=== PATIENT | male | born 1950 | race American Indian/Alaskan Native ===

== ENCOUNTER 2019-12-05 07:22 | Outpatient (CLI) | payer OTHER ==
--- NOTE | 2019-12-05 08:24 | Cat Scan Report ---
CT CHEST WITHOUT CONTRAST INDICATION / CLINICAL INFORMATION: F/U, ABNORMALITY ON CXR. TECHNIQUE: Axial CT images were obtained through the chest without contrast. All CT scans at this location are p erformed using CT dose reduction for ALARA by means of automated exposure control. COMPARISON: No relevant comparison imaging. I also do not have a report of the abnormal chest x-ray. FINDINGS: HEART: No significant abnormality. THORACIC AORTA: No significant abnormality. MEDIASTINUM and DONYA: No significant abnormality. LUNGS: Diffuse bilateral centrilobular emphysema with greater involvement of the upper lobes. No pulm onary nodule or mass. Wedge-shaped reticular interstitial opacities of the left lower lobe communicat e with the left hilum by peribronchial interstitial thickening. The appearance is most typical of ch ronic scar. PLEURA: No significant pleural effusion. No pneumothorax. ADDITIONAL FINDINGS: None. UPPER ABDOMEN: No significant abnormality. SKELETAL SYSTEM: No significant abnormality. IMPRESSION: 1. Moderate emphysema with greater involvement of the upper lobes. 2. Probable chronic left lower lobe scar. Recommend a follow-up CT chest in 6 months. Signer Name: Gage Lanza MD Signed: 12/05/2019 8:20 AM Workstation Name: [id number]
== END 2019-12-05 07:23 | disposition home or self-care (01) ==
LOC: CT 07:22
DX: J43.2 Centrilobular emphysema (principal)
CPT/HCPCS: 71250

== ENCOUNTER 2020-12-20 15:23 | Inpatient (IN) | payer OTHER ==
[2020-12-20] MEDS ORDERED: FUROSEMIDE 40 MG/4 ML INJ IV ONE (15:40)
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
--- NOTE | 2020-12-20 16:07 | XRay Report ---
CHEST 1 VIEW 12/20/2020 4:03 PM INDICATION / CLINICAL INFORMATION: Dyspnea. COMPARISON: None available. FINDINGS: SUPPORT DEVICES: None. HEART / MEDIASTINUM: No significant abnormality. LUNGS / PLEURA: Mild increased interstitial prominence and opacities in bilateral lungs left pleural effusion Signer Name: Andrey Birmingham MD Signed: 12/20/2020 4:03 PM Workstation Name: [id number]
[2020-12-20] MEDS ORDERED: IPRATROPIUM 0.02% NEBU 2.5 ML IH ONE (16:56)
[2020-12-20] MEDS ORDERED: ALBUTEROL 2.5 MG/3 ML NEBU IH ONE (16:56)
[2020-12-20 17:05] LABS: Blood Urea Nitrogen 22 mg/dL (9-20); Calcium 7.8 mg/dL (8.4-10.2); Hemolysis Index 12
[2020-12-20 17:07] LABS: Alanine Aminotransferase 20 units/L (7-56); Albumin 3.2 g/dL (3.9-5)
[2020-12-20 17:08] LABS: C-Reactive Protein 1.7 mg/dL (0.00-1.30)
[2020-12-20] MEDS ORDERED: LORazepam 2 MG/ML VIAL IV ONE (17:08)
[2020-12-20 17:10] LABS: Basophils % (Auto) 0.4 % (0.0-1.8); Eosinophils # (Auto) 0.1 K/mm3 (0.0-0.4); Eosinophils % (Auto) 0.9 % (0.0-4.3); Hematocrit 50.6 % (35.5-45.6); Hemoglobin 16.4 gm/dl (11.8-15.2); Lymphocytes # (Auto) 3.3 K/mm3 (1.2-5.4); Lymphocytes % (Auto) 41.4 % (13.4-35.0); Mean Corpuscular HGB Conc 33 % (32-34); Mean Corpuscular Volume 96 fl (84-94); Monocytes # (Auto) 0.6 K/mm3 (0.0-0.8); Monocytes % (Auto) 7.8 % (0.0-7.3); Platelet Count 188 K/mm3 (140-440); Red Cell Distribution Width 16.2 % (13.2-15.2)
[2020-12-20 17:30] LABS: BUN/Creatinine Ratio 31; Bilirubin,Direct < 0.2 mg/dL (0-0.2)
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
[2020-12-20] MEDS ORDERED: ACETAMINOPHEN 325 MG TAB PO PRN (19:09)
[2020-12-20] MEDS ORDERED: AZITHROMYCIN/NS 500 MG/250 ML 500 MG/250 ML BAG IV ONE (19:09)
[2020-12-20] MEDS ORDERED: ONDANSETRON 4 MG/2 ML INJ IV PRN (19:09)
[2020-12-20] MEDS ORDERED: ALBUTEROL 2.5 MG/3 ML NEBU IH PRN (19:09)
[2020-12-20] MEDS ORDERED: cefTRIAXone/NS 1 GM/50 ML 1 GM/50 ML BAG IV ONE (19:09)
[2020-12-20] MEDS: FAMOTIDINE 20 MG TAB PO SCH (23:27)
[2020-12-20] MEDS: methylPREDNISolone Sod Succinate 40 MG/1 ML INJ IV SCH (23:28)
[2020-12-20] MEDS: ASCORBIC ACID 500 MG TAB PO SCH (23:28)
[2020-12-20] MEDS: ZINC SULFATE 220 MG CAP PO SCH (23:28)
[2020-12-20] MEDS: HEPARIN 5,000 UNIT/1 ML VIAL SUB-Q SCH (23:29)
[2020-12-21] MEDS: methylPREDNISolone Sod Succinate 40 MG/1 ML INJ IV SCH ×3 (05:33→22:23)
[2020-12-21] MEDS: FUROSEMIDE 20 MG/2 ML INJ IV SCH ×2 (05:33→18:44)
[2020-12-21 06:13] LABS: Alanine Aminotransferase 24 units/L (7-56); Albumin 3.1 g/dL (3.9-5); Blood Urea Nitrogen 19 mg/dL (9-20); Calcium 8.1 mg/dL (8.4-10.2); Hemolysis Index 30
[2020-12-21 06:33] LABS: BUN/Creatinine Ratio 32
[2020-12-21 06:42] LABS: Hemoglobin 15.7 gm/dl (11.8-15.2); Lymphocytes # (Auto) 0.8 K/mm3 (1.2-5.4); Lymphocytes % (Auto) 17.4 % (13.4-35.0); Mean Corpuscular HGB Conc 34 % (32-34); Mean Corpuscular Volume 94 fl (84-94); Monocytes # (Auto) 0.1 K/mm3 (0.0-0.8); Monocytes % (Auto) 1.7 % (0.0-7.3); Platelet Count 197 K/mm3 (140-440); Red Blood Count 5.01 M/mm3 (3.65-5.03); Red Cell Distribution Width 15.9 % (13.2-15.2)
[2020-12-21 06:43] LABS: Basophils % (Auto) 0.1 % (0.0-1.8)
[2020-12-21] MEDS: cefTRIAXone/NS 2 GM/100 ML 2 GM/100 ML BAG IV SCH (09:31)
[2020-12-21] MEDS: FAMOTIDINE 20 MG TAB PO SCH ×2 (09:31→22:24)
[2020-12-21] MEDS: HEPARIN 5,000 UNIT/1 ML VIAL SUB-Q SCH ×2 (09:31→22:24)
[2020-12-21] MEDS: CHOLECALCIFEROL (VIT D3) 1000 UNIT (25 mcg) TAB PO SCH (09:32)
[2020-12-21] MEDS: ZINC SULFATE 220 MG CAP PO SCH ×2 (09:32→22:24)
[2020-12-21] MEDS: ASCORBIC ACID 500 MG TAB PO SCH ×2 (09:32→22:24)
[2020-12-21] MEDS ORDERED: AZITHROMYCIN/NS 500 MG/250 ML 500 MG/250 ML BAG IV SCH (10:00)
--- NOTE | 2020-12-21 14:22 | Consultation ---
History of Present Illness Consult date: 12/21/20 Requesting physician: JACKIE SANDERS Consult reason: congestive heart failure History of present illness: Pt is a 70-year-old AA male, previously unknown to our practice, who presented with confusion and respiratory distress per ER documentation. Pt is a poor historian, and thus majority of HPI obtained from chart and family. Per pt's son, pt was becoming increasingly confused at home over the past 1-2 weeks. Pt's son reports that his father's mobility has been declining, and he has been sleeping more than usual. Pt also apparently had a recent syncopal episode, for which he was evaluated at the [facility] but left AMA at that time. Upon assessment by EMS prior to arrival, pt was noted to be hypoxic with SpO2 in the 60s. He was subsequently started on Venti-Mask. Pt admits to SOB upon assessment this AM. Unable to ascertain whether or not pt has any additional cardiac complaints due to limited cognition. BNP significantly elevated at admission. CXR reveals increased interstitial prominence bilaterally, along with a small left pleural effusion. Chest CTA performed in the setting of elevated D-dimer was negative f or PE; however, reveals dense opacification in the left upper and lower lung. No previous echo or ischemic eval available for review. Past History Past Medical History: COPD, hypertension Past Surgical History: No surgical history Social history: smoking, alcohol abuse Family history: diabetes, hypertension Medications and Allergies Allergies Allergy/AdvReac Type Severity Reaction Status Date / Time No Known Allergies Allergy Unverified 12/05/19 07:22 Active Meds: Active Medications Acetaminophen (Acetaminophen 325 Mg Tab) 650 mg PO Q4H PRN PRN Reason: Pain MILD(1-3)/Fever >100.5/GEORGE Albuterol (Albuterol 2.5 Mg/3 Ml Nebu) 2.5 mg IH Q4HRT PRN PRN Reason: Shortness Of Breath Ascorbic Acid (Ascorbic Acid 500 Mg Tab) 500 mg PO BID [facility] Last Admin: 12/21/20 09:32 Dose: 500 mg Documented by: Cholecalciferol (Cholecalciferol (Vit D3) 1000 Unit (25 Mcg) Tab) 1,000 unit PO QDAY [facility] Last Admin: 12/21/20 09:32 Dose: 1,000 unit Documented by: Famotidine (Famotidine 20 Mg Tab) 20 mg PO BID [facility] Last Admin: 12/21/20 09:31 Dose: 20 mg Documented by: Furosemide (Furosemide 20 Mg/2 Ml Inj) 20 mg IV BID@0600,1800 [facility] Last Admin: 12/21/20 05:33 Dose: 20 mg Documented by: Heparin Sodium (Porcine) (Heparin 5,000 Unit/1 Ml Vial) 5,000 unit SUB-Q Q12HR [facility] Last Admin: 12/21/20 09:31 Dose: 5,000 unit Documented by: Ceftriaxone Sodium (Rocephin/Ns 2 Gm/100 Ml) 2 gm in 100 mls @ 200 mls/hr IV Q24HR [facility]; Protocol Last Infusion: 12/21/20 10:02 Dose: Infused Documented by: Azithromycin (Zithromax/Ns) 500 mg in 250 mls @ 250 mls/hr IV Q24HR [facility]; Protocol Last Admin: 12/21/20 11:07 Dose: 250 mls/hr Documented by: Methylprednisolone Sodium Succinate (Methylprednisolone Sod Succinate 40 Mg/1 Ml Inj) 40 mg IV Q8HR [facility] Last Admin: 12/21/20 13:55 Dose: 40 mg Documented by: Ondansetron HCl (Ondansetron 4 Mg/2 Ml Inj) 4 mg IV Q8H PRN PRN Reason: Nausea And Vomiting Sodium Chloride (Sodium Chloride 0.9% 10 Ml Flush Syringe) 10 ml IV BID [facility] Last Admin: 12/21/20 09:30 Dose: 10 ml Documented by: Sodium Chloride (Sodium Chloride 0.9% 10 Ml Flush Syringe) 10 ml IV PRN PRN PRN Reason: LINE FLUSH Zinc Sulfate (Zinc Sulfate 220 Mg Cap) 220 mg PO BID [facility] Last Admin: 12/21/20 09:32 Dose: 220 mg Documented by: Review of Systems ROS unobtainable: due to mental status Cardiovascular: shortness of breath Respiratory: shortness of breath Physical Examination Last Vital Signs Temp 97.8 F 12/20/20 20:05 Pulse 84 12/21/20 13:30 Resp 20 12/21/20 13:30 BP 109/65 12/21/20 13:30 Pulse Ox 98 12/21/20 13:30 General appearance: no acute distress HEENT: Positive: EOMI, Normocephaly, Mucus Membranes Moist Neck: Positive: neck supple, trachea midline. Negative: JVD/HJR Cardiac: Positive: Reg Rate and Rhythm, S1/S2. Negative: Audible Murmur Lungs: Positive: Decreased Breath Sounds (bilaterally) Neuro: Positive: Other (confused, unknown baseline cognitive fxn) Abdomen: Positive: Soft. Negative: Tender Skin: Negative: Rash Musculoskeletal: No Pain Extremities: Present: upper extr. pulses, lower extr. pulses, edema (BLE) Results 12/21/20 05:05 12/21/20 05:05 Cardiac Enzymes 12/20/20 12/20/20 12/21/20 Range/Units 15:53 15:53 05:05 AST 62 H 81 H (5-40) units/L Lactate Dehydrogenase 346 H (91-180) units/L CBC 12/20/20 12/21/20 Range/Units 15:53 05:05 WBC 8.0 4.7 (4.5-11.0) K/mm3 RBC 5.30 H 5.01 (3.65-5.03) M/mm3 Hgb 16.4 H 15.7 H (11.8-15.2) gm/dl Hct 50.6 H 47.0 H (35.5-45.6) % Plt Count 188 197 (140-440) K/mm3 Lymph # (Auto) 3.3 0.8 L (1.2-5.4) K/mm3 [place] # (Auto) 0.6 0.1 (0.0-0.8) K/mm3 Eos # (Auto) 0.1 0.0 (0.0-0.4) K/mm3 Baso # (Auto) 0.0 0.0 (0.0-0.1) K/mm3 Comprehensive Metabolic Panel 12/20/20 12/20/20 12/20/20 Range/Units 15:53 15:53 15:53 Sodium 140 (137-145) mmol/L Potassium 3.5 L (3.6-5.0) mmol/L Chloride 99.2 (98-107) mmol/L Carbon Dioxide 34 H (22-30) mmol/L BUN 22 H (9-20) mg/dL Creatinine 0.7 L (0.8-1.3) mg/dL Glucose 115 H 114 H (75-100) mg/dL Calcium 7.8 L (8.4-10.2) mg/dL Direct Bilirubin < 0.2 (0-0.2) mg/dL Indirect Bilirubin 0.4 mg/dL AST 62 H (5-40) units/L ALT 20 (7-56) units/L Alkaline Phosphatase 84 (35-129) units/L Total Protein 5.5 L (6.3-8.2) g/dL Albumin 3.2 L (3.9-5) g/dL 12/21/20 Range/Units 05:05 Sodium 143 (137-145) mmol/L Potassium 4.4 D (3.6-5.0) mmol/L Chloride 102.4 (98-107) mmol/L Carbon Dioxide 33 H (22-30) mmol/L BUN 19 (9-20) mg/dL Creatinine 0.6 L (0.8-1.3) mg/dL Glucose 117 H (75-100) mg/dL Calcium 8.1 L (8.4-10.2) mg/dL Direct Bilirubin (0-0.2) mg/dL Indirect Bilirubin mg/dL AST 81 H (5-40) units/L ALT 24 (7-56) units/L Alkaline Phosphatase 92 (35-129) units/L Total Protein 5.4 L (6.3-8.2) g/dL Albumin 3.1 L (3.9-5) g/dL - Imaging and Cardiology Echo: pending EKG: report reviewed, image reviewed - EKG Interpretation EKG: no acute changes EKG interpretations - EKG Sinus rhythms and dysrhythmias: sinus rhythm AV and intraventricular conduction: left posterior fascicular QRS axis and voltage: right axis deviation Assessment and Plan Await COVID-19 testing. Mgmt of PNA per Primary. Echo pending. Agree with gentle IV diuresis for now. Further recommendations to follow per hospital course. Pt seen in conjunction with Dr. Garcia, who agrees with the assessment and plan of care. - Patient Problems (1) Acute encephalopathy Current Visit: Yes Status: Acute (2) Acute respiratory failure with hypoxia Current Visit: Yes Status: Acute (3) Pneumonia Current Visit: Yes Status: Acute (4) Suspected COVID-19 virus infection Current Visit: Yes Status: Acute (5) Elevated d-dimer Current Visit: Yes Status: Acute Plan to address problem: Chest CTA neg for PE (6) CHF (congestive heart failure) Current Visit: Yes Status: Suspected Qualifiers: Heart failure type: unspecified Heart failure chronicity: acute on chronic Qualified Code(s): I50.9 - Heart failure, unspecified (7) COPD (chronic obstructive pulmonary disease) Current Visit: Yes Status: Chronic (8) Hypertension Current Visit: No Status: Chronic Qualifiers: Hypertension type: essential hypertension Qualified Code(s): I10 - Essential (primary) hypertension (9) Cerebral atherosclerosis Current Visit: Yes Status: Chronic (10) Vascular dementia Current Visit: Yes Status: Chronic Qualifiers: Dementia behavioral disturbance: with behavioral disturbance Qualified Code(s): F01.51 - Vascular dementia with behavioral disturbance (11) Tobacco abuse Current Visit: Yes Status: Chronic (12) ETOH abuse Current Visit: Yes Status: Chronic
--- NOTE | 2020-12-21 23:46 | Progress Note ---
Assessment and Plan Assessment and Plan - Patient Problems (1) Acute respiratory failure with hypoxia Current Visit: Yes Status: Acute Plan to address problem: Improving (2) Pneumonia Current Visit: Yes Status: Acute Plan to address problem: Continue IV antibiotics (3) Suspected COVID-19 virus infection Current Visit: Yes Status: Acute Plan to address problem: Pending (4) CHF (congestive heart failure) Current Visit: Yes Status: Acute Qualifiers: Heart failure type: systolic Heart failure chronicity: acute Qualified Code(s): I50.21 - Acute systolic (congestive) heart failure Plan to address problem: Strict I/O, monitor urine output every shift, daily weight, afterload reduction, blood pressure control, continue medical management, diuresis, (5) Hypertension Current Visit: Yes Status: Acute Qualifiers: Hypertension type: essential hypertension Qualified Code(s): I10 - Essential (primary) hypertension Plan to address problem: Monitor blood pressure every shift, continue medical management (6) Vascular dementia Current Visit: Yes Status: Acute Qualifiers: Dementia behavioral disturbance: with behavioral disturbance Qualified Code(s): F01.51 - Vascular dementia with behavioral disturbance Plan to address problem: Verbal prompting, verbal redirection, benzodiazepine therapy as clinically indicated, supportive care (7) Cerebral atherosclerosis Current Visit: Yes Status: Acute Plan to address problem: Risk factor reduction, supportive care, antiplatelet therapy as clinically indicated. (8) DVT prophylaxis Current Visit: Yes Status: Acute Plan to address problem: SCD to bilateral lower extremities while in bed, prophylactic anticoagulation (9) Advance care planning Current Visit: Yes Status: Acute Plan to address problem: Disease education conducted, care plan discussed, diagnoses discussed, prognosis discussed, patient's daughter knowledges understanding and agreement with care plan, +30 minutes. Patient is full code. Subjective Date of service: 12/21/20 Principal diagnosis: Acute respiratory failure with hypoxia Interval history: 70 YO Male with HTN, COPD, Vascular Dementia, Cerebral Atherosclerosis presents to ED for evaluation. Patient is confused with diminished cognition at the time my evaluation and is unable to provide history. Patient history provided by EMS staff, ED staff, as well as patient's son who was available by telephone to discuss patient history. As per son the patient was found to have increased confusion and shortness of breath. EMS was notified and upon arrival the patient was found to be in distress with a pulse oximetry in the 60s on room air. The patient was treated with submental oxygen with mild improvement in symptoms and subsequently transported to [facility] for further care and evaluation of the aforementioned symptoms. Patient seen and evaluated in the emergency department. All lab and imaging studies reviewed. Patient was found to have a pulse oximetry of 72% on room air which is consistent with acute hypoxemic respiratory failure. The patient was treated with nonrebreather mask with mild improvement in symptoms. Chest x-ray revealed bilateral pneumonia. Patient also found to have clinical symptoms consistent with CHF decompensation. Patient admitted to medical floor and initiated on CHF protocol as well as pneumonia protocol and coronavirus protocol. No further history is obtainable. No reports of fever, chills, chest pain, palpitation, trauma, skin rash, recent ill contacts, or known exposure to COVID-19. No prior admission for review. No medication listed at time of admission for reconciliation. Advanced care planning conducted in ED. Patient admitted to [facility] due to increased risk of multisymptom decompensation. Patient is confused with diminished cognition at the time of my evaluation but has a positive gag reflex and is able to protect his airway without difficulty 12/21/2020 Still short of breath Intermittently on high flow oxygen and BiPAP Continue antibiotics and steroids and DuoNebs Objective - Constitutional Vitals: Vital Signs - 12hr 12/21/20 12/21/20 12/21/20 12:00 12:15 12:30 Temperature Pulse Rate 85 85 90 Respiratory 18 21 21 Rate Blood Pressure 121/69 117/70 111/65 O2 Sat by Pulse 100 100 97 Oximetry 12/21/20 12/21/20 12/21/20 12:45 13:00 13:16 Temperature Pulse Rate 93 H 85 84 Respiratory 24 21 20 Rate Blood Pressure 110/47 107/66 105/64 O2 Sat by Pulse 95 98 98 Oximetry 12/21/20 12/21/20 12/21/20 13:30 13:46 14:00 Temperature Pulse Rate 84 92 H 87 Respiratory 20 18 18 Rate Blood Pressure 109/65 101/59 107/65 O2 Sat by Pulse 98 97 98 Oximetry 12/21/20 12/21/20 12/21/20 14:15 14:30 14:45 Temperature Pulse Rate 85 84 86 Respiratory 20 18 22 Rate Blood Pressure 112/67 105/65 109/70 O2 Sat by Pulse 96 96 96 Oximetry 12/21/20 12/21/2012/21/21 15:00 15:15 15:30 Temperature Pulse Rate 82 81 81 Respiratory 24 17 19 Rate Blood Pressure 112/64 101/62 106/65 O2 Sat by Pulse 95 96 96 Oximetry 12/21/20 12/21/20 12/21/20 15:46 15:50 16:00 Temperature Pulse Rate 81 82 Respiratory 17 22 Rate Blood Pressure 114/66 114/66 O2 Sat by Pulse 96 96 93 Oximetry 12/21/20 12/21/20 12/21/20 17:43 18:33 19:18 Temperature Pulse Rate 84 Respiratory Rate Blood Pressure O2 Sat by Pulse 96 98 Oximetry 12/21/20 20:59 Temperature 98.2 F Pulse Rate Respiratory Rate Blood Pressure O2 Sat by Pulse Oximetry General appearance: Present: mild distress, well-nourished - EENT Eyes: PERRL, EOM intact ENT: hearing intact, clear oral mucosa Ears: bilateral: normal - Neck Neck: supple, normal ROM - Respiratory Respiratory effort: normal Respiratory: bilateral: CTA, rhonchi, wheezing - Breasts Breasts: normal - Cardiovascular Heart rate: 78 Rhythm: regular Heart Sounds: Present: S1 & S2. Absent: gallop, rub Extremities: pulses intact, No edema, normal color, Full ROM - Gastrointestinal General gastrointestinal: Present: soft, non-tender, non-distended, normal bowel sounds - Genitourinary Male genitourinary: normal - Integumentary Integumentary: clear, warm, dry - Musculoskeletal Musculoskeletal: 1, strength equal bilaterally - Neurologic Neurologic: moves all extremities - Psychiatric Psychiatric: memory intact, appropriate mood/affect, intact judgment & insight - Labs CBC & Chem 7: 12/21/20 05:05 12/21/20 05:05 Labs: Abnormal lab results 12/21/20 12/21/20 Range/Units 05:05 05:05 Hgb 15.7 H (11.8-15.2) gm/dl Hct 47.0 H (35.5-45.6) % RDW 15.9 H (13.2-15.2) % Lymph # (Auto) 0.8 L (1.2-5.4) K/mm3 Seg Neutrophils % 80.8 H (40.0-70.0) % Carbon Dioxide 33 H (22-30) mmol/L Creatinine 0.6 L (0.8-1.3) mg/dL Glucose 117 H (75-100) mg/dL Calcium 8.1 L (8.4-10.2) mg/dL AST 81 H (5-40) units/L Total Protein 5.4 L (6.3-8.2) g/dL Albumin 3.1 L (3.9-5) g/dL HEART Score - HEART Score Troponin: Troponin T < 0.010 ng/mL (0.00-0.029) 12/20/20 15:53
[2020-12-22] MEDS: FUROSEMIDE 20 MG/2 ML INJ IV SCH ×2 (06:20→17:10)
[2020-12-22] MEDS: methylPREDNISolone Sod Succinate 40 MG/1 ML INJ IV SCH ×3 (06:20→21:54)
[2020-12-22] MEDS: cefTRIAXone/NS 2 GM/100 ML 2 GM/100 ML BAG IV SCH (09:35)
[2020-12-22] MEDS: CHOLECALCIFEROL (VIT D3) 1000 UNIT (25 mcg) TAB PO SCH (09:35)
[2020-12-22] MEDS: AZITHROMYCIN 250 MG TAB PO SCH (09:35)
[2020-12-22] MEDS: FAMOTIDINE 20 MG TAB PO SCH ×2 (09:35→21:54)
[2020-12-22] MEDS: ASCORBIC ACID 500 MG TAB PO SCH ×2 (09:36→21:54)
[2020-12-22] MEDS: HEPARIN 5,000 UNIT/1 ML VIAL SUB-Q SCH ×2 (09:36→21:55)
[2020-12-22] MEDS: ZINC SULFATE 220 MG CAP PO SCH ×2 (09:36→21:54)
--- NOTE | 2020-12-22 16:00 | Progress Note ---
Assessment and Plan Telemetry reviewed sinus rhythm 75. Several episodes of PVC triplets overnight Await COVID-19 testing. Mgmt of PNA per Primary. Echo pending. Agree with gentle IV diuresis for now. Further recommendations to follow per hospital course. Pt seen in conjunction with Dr Ruano who agrees with the assessment and plan of care. - Patient Problems (1) Acute encephalopathy Current Visit: Yes Status: Acute (2) Acute respiratory failure with hypoxia Current Visit: Yes Status: Acute (3) Pneumonia Current Visit: Yes Status: Acute (4) Suspected COVID-19 virus infection Current Visit: Yes Status: Acute (5) Elevated d-dimer Current Visit: Yes Status: Acute Plan to address problem: Chest CTA neg for PE (6) CHF (congestive heart failure) Current Visit: Yes Status: Suspected Qualifiers: Heart failure type: unspecified Heart failure chronicity: acute on chronic Qualified Code(s): I50.9 - Heart failure, unspecified (7) COPD (chronic obstructive pulmonary disease) Current Visit: Yes Status: Chronic (8) Hypertension Current Visit: No Status: Chronic Qualifiers: Hypertension type: essential hypertension Qualified Code(s): I10 - Essential (primary) hypertension (9) Cerebral atherosclerosis Current Visit: Yes Status: Chronic (10) Vascular dementia Current Visit: Yes Status: Chronic Qualifiers: Dementia behavioral disturbance: with behavioral disturbance Qualified Code(s): F01.51 - Vascular dementia with behavioral disturbance (11) Tobacco abuse Current Visit: Yes Status: Chronic (12) ETOH abuse Current Visit: Yes Status: Chronic Subjective Date of service: 12/22/20 Principal diagnosis: Resp Distress Interval history: Patient resting comfortably in bed. No chest pain or shortness of breath overnight. Patient states he is ready to discharge. Significant improvement. Difficult to communicate due to hard of hearing and no functional hearing aids present. Telemetry reviewed sinus rhythm 75. Several episodes of triplet PVCs noted ov ernight Objective Last Vital Signs Temp 97.2 F L 12/22/20 12:00 Pulse 80 12/22/20 15:00 Resp 20 12/22/20 15:00 BP 117/72 12/22/20 15:00 Pulse Ox 98 12/22/20 15:00 - Physical Examination HEENT: Positive: EOMI, Normocephaly, Mucus Membranes Moist Neck: Positive: neck supple, trachea midline. Negative: JVD/HJR Cardiac: Positive: Reg Rate and Rhythm, S1/S2 Lungs: Positive: clear to auscultation, Normal Breath Sounds Neuro: Positive: Other (confused, unknown baseline cognitive fxn) Abdomen: Positive: Soft. Negative: Tender Skin: Negative: Rash Musculoskeletal: No Pain Extremities: Present: upper extr. pulses, lower extr. pulses, edema (BLE) - Imaging and Cardiology EKG: report reviewed, image reviewed Echo: pending - Telemetry EKG Rhythm: Sinus Rhythm - EKG Sinus rhythms and dysrhythmias: sinus rhythm AV and intraventricular conduction: left posterior fascicular QRS axis and voltage: right axis deviation
[2020-12-23] MEDS: FUROSEMIDE 20 MG/2 ML INJ IV SCH ×2 (05:35→18:39)
[2020-12-23] MEDS: methylPREDNISolone Sod Succinate 40 MG/1 ML INJ IV SCH ×3 (05:35→22:09)
--- NOTE | 2020-12-23 06:21 | Progress Note ---
Assessment and Plan Assessment and plan: Assessment and Plan - Patient Problems (1) Acute respiratory failure with hypoxia Current Visit: Yes Status: Acute Plan to address problem: Improving Patient has home oxygen and concentrator Possible discharge tomorrow (2) Pneumonia Current Visit: Yes Status: Acute Plan to address problem: Continue IV antibiotics Possible discharge tomorrow on oral antibiotics (3) Suspected COVID-19 virus infection Current Visit: Yes Status: Acute Plan to address problem: Coronavirus PCR negative (4) CHF (congestive heart failure) Current Visit: Yes Status: Acute Qualifiers: Heart failure type: systolic Heart failure chronicity: acute Qualified Code(s): I50.21 - Acute systolic (congestive) heart failure Plan to address problem: Echo report still pending (5) Hypertension Current Visit: Yes Status: Acute Qualifiers: Hypertension type: essential hypertension Qualified Code(s): I10 - Essential (primary) hypertension Plan to address problem: Blood pressure under control (6) Vascular dementia Current Visit: Yes Status: Acute Qualifiers: Dementia behavioral disturbance: with behavioral disturbance Qualified Code(s): F01.51 - Vascular dementia with behavioral disturbance Plan to address problem: Verbal prompting, verbal redirection, benzodiazepine therapy as clinically indicated, supportive care (7) Cerebral atherosclerosis Current Visit: Yes Status: Acute Plan to address problem: Risk factor reduction, supportive care, antiplatelet therapy as clinically indicated. (8) DVT prophylaxis Current Visit: Yes Status: Acute Plan to address problem: SCD to bilateral lower extremities while in bed, prophylactic anticoagulation (9) Advance care planning Current Visit: Yes Status: Acute Plan to address problem: Disease education conducted, care plan discussed, diagnoses discussed, prognosis discussed, patient's daughter knowledges understanding and agreement with care plan, +30 minutes. Patient is full code. Discharge planning issues Patient on 4 L nasal cannula oxygen Patient has oxygen at home and concentrator at home If stable patient may be discharged tomorrow Coronavirus PCR negative History Interval history: 70 YO Male with HTN, COPD, Vascular Dementia, Cerebral Atherosclerosis presents to ED for evaluation. Patient is confused with diminished cognition at the time my evaluation and is unable to provide history. Patient history provided by EMS staff, ED staff, as well as patient's son who was available by telephone to discuss patient history. As per son the patient was found to have increased confusion and shortness of breath. EMS was notified and upon arrival the patient was found to be in distress with a pulse oximetry in the 60s on room air. The patient was treated with submental oxygen with mild improvement in symptoms and subsequently transported to [facility] for further care and evaluation of the aforementioned symptoms. Patient seen and evaluated in the emergency department. All lab and imaging studies reviewed. Patient was found to have a pulse oximetry of 72% on room air which is consistent with acute hypoxemic respiratory failure. The patient was treated with nonrebreather mask with mild improvement in symptoms. Chest x-ray revealed bilateral pneumonia. Patient also found to have clinical symptoms consistent with CHF decompensation. Patient admitted to medical floor and initiated on CHF protocol as well as pneum onia protocol and coronavirus protocol. No further history is obtainable. No reports of fever, chills, chest pain, palpitation, trauma, skin rash, recent ill contacts, or known exposure to COVID-19. No prior admission for review. No medication listed at time of admission for reconciliation. Advanced care planning conducted in ED. Patient admitted to [facility] due to increased risk of multisymptom decompensation. Patient is confused with diminished cognition at the time of my evaluation but has a positive gag reflex and is able to protect his airway without difficulty 12/21/2020 Still short of breath Intermittently on high flow oxygen and BiPAP Continue antibiotics and steroids and DuoNebs 12/22/2022 Shortness of breath is better On 4 L nasal cannula oxygen Patient to be transferred from [facility] to regular floor Covid negative Hospitalist Physical - Constitutional Vitals: Temp Pulse Resp BP Pulse Ox 98.0 F 77 18 108/71 97 12/23/20 03:57 12/22/20 21:45 12/23/20 03:57 12/23/20 03:56 12/22/20 21:45 General appearance: Present: mild distress, well-nourished - Respiratory Respiratory: bilateral: rales, rhonchi - Cardiovascular Heart rate: 78 Rhythm: regular - Extremities Extremities: no ischemia - Psychiatric Psychiatric: appropriate mood/affect, cooperative - Neurologic Neurologic: CNII-XII intact, gait normal - Allied Health Allied health notes reviewed: nursing, case management HEART Score - HEART Score Troponin: Troponin T < 0.010 ng/mL (0.00-0.029) 12/20/20 15:53 Results - Labs CBC & Chem 7: 12/21/20 05:05 12/21/20 05:05 Labs: Laboratory Last Values WBC 4.7 K/mm3 (4.5-11.0) 12/21/20 05:05 RBC 5.01 M/mm3 (3.65-5.03) 12/21/20 05:05 Hgb 15.7 gm/dl (11.8-15.2) H 12/21/20 05:05 Hct 47.0 % (35.5-45.6) H 12/21/20 05:05 MCV 94 fl (84-94) 12/21/20 05:05 MCH 31 pg (28-32) 12/21/20 05:05 MCHC 34 % (32-34) 12/21/20 05:05 RDW 15.9 % (13.2-15.2) H 12/21/20 05:05 Plt Count 197 K/mm3 (140-440) 12/21/20 05:05 Lymph % (Auto) 17.4 % (13.4-35.0) 12/21/20 05:05 [place] % (Auto) 1.7 % (0.0-7.3) 12/21/20 05:05 Eos % (Auto) 0.0 % (0.0-4.3) 12/21/20 05:05 Baso % (Auto) 0.1 % (0.0-1.8) 12/21/20 05:05 Lymph # (Auto) 0.8 K/mm3 (1.2-5.4) L 12/21/20 05:05 [place] # (Auto) 0.1 K/mm3 (0.0-0.8) 12/21/20 05:05 Eos # (Auto) 0.0 K/mm3 (0.0-0.4) 12/21/20 05:05 Baso # (Auto) 0.0 K/mm3 (0.0-0.1) 12/21/20 05:05 Seg Neutrophils % 80.8 % (40.0-70.0) H 12/21/20 05:05 Seg Neutrophils # 3.8 K/mm3 (1.8-7.7) 12/21/20 05:05 D-Dimer 1009.51 ng/mlDDU (0-234) H 12/20/20 15:53 ABG pH 7.363 (7.320-7.450) 12/20/20 17:46 POC ABG pCO2 56.9 mmHg (32.0-48.0) H 12/20/20 17:46 POC ABG pO2 105.8 mmHg (83-108) 12/20/20 17:46 POC ABG HCO3 31.6 12/20/20 17:46 ABG O2 Saturation 98.0 (0-100) 12/20/20 17:46 POC ABG Base Excess 4.2 12/20/20 17:46 ABG Hemoglobin 17.9 (12.0-17.5) H 12/20/20 17:46 ABG Oxyhemoglobin 95.0 (94-98) 12/20/20 17:46 ABG Methemoglobin 0.1 (0.0-1.5) 12/20/20 17:46 ABG Sodium 141.3 mmol/L (136.0-145.0) 12/20/20 17:46 ABG Potassium 3.7 mmol/L (3.40-4.50) 12/20/20 17:46 ABG Chloride 101.0 mmol/L (98-107) 12/20/20 17:46 ABG Glucose 116 mg/dL (65-95) H 12/20/20 17:46 Carboxyhemoglobin 3.0 (0.5-1.5) H 12/20/20 17:46 FiO2 % 98.0 12/20/20 17:46 Sodium 143 mmol/L (137-145) 12/21/20 05:05 Potassium 4.4 mmol/L (3.6-5.0) D 12/21/20 05:05 Chloride 102.4 mmol/L (98-107) 12/21/20 05:05 Carbon Dioxide 33 mmol/L (22-30) H 12/21/20 05:05 Anion Gap 12 mmol/L 12/21/20 05:05 BUN 19 mg/dL (9-20) 12/21/20 05:05 Creatinine 0.6 mg/dL (0.8-1.3) L 12/21/20 05:05 Estimated GFR > 60 ml/min 12/21/20 05:05 BUN/Creatinine Ratio 32 % 12/21/20 05:05 Glucose 117 mg/dL (75-100) H 12/21/20 05:05 Calcium 8.1 mg/dL (8.4-10.2) L 12/21/20 05:05 Ferritin 95.4 ng/mL (30.0-300.0) 12/20/20 15:53 Total Bilirubin 0.30 mg/dL (0.1-1.2) 12/21/20 05:05 Direct Bilirubin < 0.2 mg/dL (0-0.2) 12/20/20 15:53 Indirect Bilirubin 0.4 mg/dL 12/20/20 15:53 AST 81 units/L (5-40) H 12/21/20 05:05 ALT 24 units/L (7-56) 12/21/20 05:05 Alkaline Phosphatase 92 units/L (35-129) 12/21/20 05:05 Ammonia 12.0 umol/L (25-60) L 12/20/20 17:06 Lactate Dehydrogenase 346 units/L (91-180) H 12/20/20 15:53 Troponin T < 0.010 ng/mL (0.00-0.029) 12/20/20 15:53 C-Reactive Protein 1.70 mg/dL (0.00-1.30) H 12/20/20 15:53 NT-Pro-B Natriuret Pep 7700 pg/mL (0-900) H 12/20/20 15:53 Total Protein 5.4 g/dL (6.3-8.2) L 12/21/20 05:05 Albumin 3.1 g/dL (3.9-5) L 12/21/20 05:05 Albumin/Globulin Ratio 1.3 % 12/21/20 05:05 Procalcitonin 0.05 ng/mL (<0.15) 12/20/20 15:53 TSH 0.920 mlU/mL (0.270-4.200) 12/20/20 17:06 Arterial Blood Glucose 116 mg/dL (65-95) H 12/20/20 17:46 Arterial Blood Ionized Calcium 4.7 mg/dL (4.6-5.3) 12/20/20 17:46 Coronavirus (PCR) Negative (Negative) 12/21/20 09:18 Microbiology: Microbiology 12/20/20 16:00 Peripheral/Venous Blood Culture - Preliminary NO GROWTH AFTER 48 HOURS 12/20/20 15:53 Peripheral/Venous Blood Culture - Preliminary NO GROWTH AFTER 48 HOURS Brown/IV: Voiding Method Urinal Active Medications - Current Medications Current Medications: Generic Name Dose Route Start Last Admin Trade Name Freq PRN Reason Stop Dose Admin Acetaminophen 650 mg 12/20/20 19:09 Acetaminophen 325 Mg Tab PO Q4H PRN Pain MILD(1-3)/Fever >100.5/GEORGE Albuterol 2.5 mg 12/20/20 19:09 Albuterol 2.5 Mg/3 Ml Nebu IH Q4HRT PRN Shortness Of Breath Ascorbic Acid 500 mg 12/20/20 22:00 12/22/20 21:54 Ascorbic Acid 500 Mg Tab PO 500 mg BID KELLY Administration Azithromycin 500 mg 12/22/20 10:00 12/22/20 09:35 Azithromycin 250 Mg Tab PO 12/25/20 10:01 500 mg QDAY KELLY Administration Protocol Cholecalciferol 1,000 unit 12/21/20 10:00 12/22/20 09:35 Cholecalciferol (Vit D3) 1000 Unit (25 Mcg) Tab PO 1,000 unit QDAY KELLY Administration Famotidine 20 mg 12/20/20 22:00 12/22/20 21:54 Famotidine 20 Mg Tab PO 20 mg BID KELLY Administration Furosemide 20 mg 12/21/20 06:00 12/23/20 05:35 Furosemide 20 Mg/2 Ml Inj IV 20 mg BID@0600,1800 KELLY Administration Heparin Sodium (Porcine) 5,000 unit 12/20/20 22:00 12/22/20 21:55 Heparin 5,000 Unit/1 Ml Vial SUB-Q 5,000 unit Q12HR KELLY Administration Ceftriaxone Sodium 2 gm in 100 mls @ 200 mls/hr 12/21/20 10:00 12/22/20 09:35 Rocephin/Ns 2 Gm/100 Ml IV 12/25/20 10:29 200 mls/hr Q24HR KELLY Administration Protocol Methylprednisolone Sodium Succinate 40 mg 12/20/20 22:00 12/23/20 05:35 Methylprednisolone Sod Succinate 40 Mg/1 Ml Inj IV 40 mg Q8HR KELLY Administration Ondansetron HCl 4 mg 12/20/20 19:09 Ondansetron 4 Mg/2 Ml Inj IV Q8H PRN Nausea And Vomiting Sodium Chloride 10 ml 12/20/20 22:00 12/22/20 21:55 Sodium Chloride 0.9% 10 Ml Flush Syringe IV 10 ml BID KELLY Administration Sodium Chloride 10 ml 12/20/20 19:09 Sodium Chloride 0.9% 10 Ml Flush Syringe IV PRN PRN LINE FLUSH Zinc Sulfate 220 mg 12/20/20 22:00 12/22/20 21:54 Zinc Sulfate 220 Mg Cap PO 220 mg BID KELLY Administration
--- NOTE | 2020-12-23 08:18 | Progress Note ---
Assessment and Plan Assessment and plan: Acute respiratory failure with hypoxia Patient on Ventimask on 15 L of oxygen, 50% FiO2 saturating 95% Wean as tolerated, patient home oxygen dependent on 3 L Possible discharge tomorrow Pneumonia Continue IV antibiotics Rocephin and Zithromax Plan discharge on oral antibiotics if stable Suspected COVID-19 virus infection Coronavirus PCR negative 01-09 DC isolation CHF (congestive heart failure) Unknown ejection fraction Echo done pending report cardiology following History of hypertension However blood pressure well controlled Did not need any antihypertensives Vascular dementia Verbal prompting, verbal redirection, supportive care Cerebral atherosclerosis Risk factor reduction, supportive care, antiplatelet therapy as clinically indicated. Moderate microvascular ischemic changes on CT head DVT prophylaxis SCD/subcu Heparin Full code status Disposition; will discharge home tomorrow if stable Patient may follow-up with cardiology, echocardiogram at follow-up if needed Patient already has home oxygen Brief history 70 YO Male with HTN, COPD, Vascular Dementia, Cerebral Atherosclerosis was admitted through emergency room with altered level of consciousness and confusion patient was found to have increased confusion and shortness of breath. patient was found to be in distress with a pulse oximetry in the 60s on room air. Patient received supplemental oxygen with mild improvement of symptoms , admitted to the hospital symptomatically managed , evaluated by cardiology medications optimized . Patient was PUI, ruiz PCR test was negative, patient initially was severely hypoxemic on high flow oxygen and BiPAP, gradually improved today 12/23/2020 patient is on 5 L of nasal cannula oxygen with intermittent BiPAP Patient has congestive heart failure his ejection fraction unknown, echocardiogram done, pending report Continue current management, possible discharge tomorrow if stable 12/21/2020 Still short of breath Intermittently on high flow oxygen and BiPAP Continue antibiotics and steroids and DuoNebs 12/22/2022 Shortness of breath is better On 4 L nasal cannula oxygen Patient to be transferred from [facility] to regular floor Covid negative 12/23/2020; patient is stable, patient has home oxygen plan DC home tomorrow Echo done, pending report History Interval history: I have seen and examined the patient at the bedside Patient's chart and medications reviewed Patient feels better no new complaints Vital signs noted Hospitalist Physical - Constitutional Vitals: Temp Pulse Resp BP Pulse Ox 98.0 F 77 18 108/71 97 12/23/20 03:57 12/22/20 21:45 12/23/20 03:57 12/23/20 03:56 12/22/20 21:45 General appearance: Present: no acute distress, well-nourished - EENT Eyes: Present: PERRL, EOM intact - Neck Neck: Present: supple, normal ROM - Respiratory Respiratory effort: normal Respiratory: bilateral: diminished, negative: rales, rhonchi, wheezing - Cardiovascular Rhythm: regular Heart Sounds: Present: S1 & S2 - Extremities Extremities: no ischemia, No edema - Abdominal General gastrointestinal: soft, non-tender, non-distended, normal bowel sounds - Integumentary Integumentary: Present: clear, warm - Psychiatric Psychiatric: appropriate mood/affect, cooperative - Neurologic Neurologic: moves all extremities HEART Score - HEART Score Troponin: Troponin T < 0.010 ng/mL (0.00-0.029) 12/20/20 15:53 Results - Labs CBC & Chem 7: 12/21/20 05:05 12/21/20 05:05 Labs: Laboratory Last Values WBC 4.7 K/mm3 (4.5-11.0) 12/21/20 05:05 RBC 5.01 M/mm3 (3.65-5.03) 12/21/20 05:05 Hgb 15.7 gm/dl (11.8-15.2) H 12/21/20 05:05 Hct 47.0 % (35.5-45.6) H 12/21/20 05:05 MCV 94 fl (84-94) 12/21/20 05:05 MCH 31 pg (28-32) 12/21/20 05:05 MCHC 34 % (32-34) 12/21/20 05:05 RDW 15.9 % (13.2-15.2) H 12/21/20 05:05 Plt Count 197 K/mm3 (140-440) 12/21/20 05:05 Lymph % (Auto) 17.4 % (13.4-35.0) 12/21/20 05:05 [place] % (Auto) 1.7 % (0.0-7.3) 12/21/20 05:05 Eos % (Auto) 0.0 % (0.0-4.3) 12/21/20 05:05 Baso % (Auto) 0.1 % (0.0-1.8) 12/21/20 05:05 Lymph # (Auto) 0.8 K/mm3 (1.2-5.4) L 12/21/20 05:05 [place] # (Auto) 0.1 K/mm3 (0.0-0.8) 12/21/20 05:05 Eos # (Auto) 0.0 K/mm3 (0.0-0.4) 12/21/20 05:05 Baso # (Auto) 0.0 K/mm3 (0.0-0.1) 12/21/20 05:05 Seg Neutrophils % 80.8 % (40.0-70.0) H 12/21/20 05:05 Seg Neutrophils # 3.8 K/mm3 (1.8-7.7) 12/21/20 05:05 D-Dimer 1009.51 ng/mlDDU (0-234) H 12/20/20 15:53 ABG pH 7.363 (7.320-7.450) 12/20/20 17:46 POC ABG pCO2 56.9 mmHg (32.0-48.0) H 12/20/20 17:46 POC ABG pO2 105.8 mmHg (83-108) 12/20/20 17:46 POC ABG HCO3 31.6 12/20/20 17:46 ABG O2 Saturation 98.0 (0-100) 12/20/20 17:46 POC ABG Base Excess 4.2 12/20/20 17:46 ABG Hemoglobin 17.9 (12.0-17.5) H 12/20/20 17:46 ABG Oxyhemoglobin 95.0 (94-98) 12/20/20 17:46 ABG Methemoglobin 0.1 (0.0-1.5) 12/20/20 17:46 ABG Sodium 141.3 mmol/L (136.0-145.0) 12/20/20 17:46 ABG Potassium 3.7 mmol/L (3.40-4.50) 12/20/20 17:46 ABG Chloride 101.0 mmol/L (98-107) 12/20/20 17:46 ABG Glucose 116 mg/dL (65-95) H 12/20/20 17:46 Carboxyhemoglobin 3.0 (0.5-1.5) H 12/20/20 17:46 FiO2 % 98.0 12/20/20 17:46 Sodium 143 mmol/L (137-145) 12/21/20 05:05 Potassium 4.4 mmol/L (3.6-5.0) D 12/21/20 05:05 Chloride 102.4 mmol/L (98-107) 12/21/20 05:05 Carbon Dioxide 33 mmol/L (22-30) H 12/21/20 05:05 Anion Gap 12 mmol/L 12/21/20 05:05 BUN 19 mg/dL (9-20) 12/21/20 05:05 Creatinine 0.6 mg/dL (0.8-1.3) L 12/21/20 05:05 Estimated GFR > 60 ml/min 12/21/20 05:05 BUN/Creatinine Ratio 32 % 12/21/20 05:05 Glucose 117 mg/dL (75-100) H 12/21/20 05:05 Calcium 8.1 mg/dL (8.4-10.2) L 12/21/20 05:05 Ferritin 95.4 ng/mL (30.0-300.0) 12/20/20 15:53 Total Bilirubin 0.30 mg/dL (0.1-1.2) 12/21/20 05:05 Direct Bilirubin < 0.2 mg/dL (0-0.2) 12/20/20 15:53 Indirect Bilirubin 0.4 mg/dL 12/20/20 15:53 AST 81 units/L (5-40) H 12/21/20 05:05 ALT 24 units/L (7-56) 12/21/20 05:05 Alkaline Phosphatase 92 units/L (35-129) 12/21/20 05:05 Ammonia 12.0 umol/L (25-60) L 12/20/20 17:06 Lactate Dehydrogenase 346 units/L (91-180) H 12/20/20 15:53 Troponin T < 0.010 ng/mL (0.00-0.029) 12/20/20 15:53 C-Reactive Protein 1.70 mg/dL (0.00-1.30) H 12/20/20 15:53 NT-Pro-B Natriuret Pep 7700 pg/mL (0-900) H 12/20/20 15:53 Total Protein 5.4 g/dL (6.3-8.2) L 12/21/20 05:05 Albumin 3.1 g/dL (3.9-5) L 12/21/20 05:05 Albumin/Globulin Ratio 1.3 % 12/21/20 05:05 Procalcitonin 0.05 ng/mL (<0.15) 12/20/20 15:53 TSH 0.920 mlU/mL (0.270-4.200) 12/20/20 17:06 Arterial Blood Glucose 116 mg/dL (65-95) H 12/20/20 17:46 Arterial Blood Ionized Calcium 4.7 mg/dL (4.6-5.3) 12/20/20 17:46 Coronavirus (PCR) Negative (Negative) 12/21/20 09:18 Microbiology: Microbiology 12/20/20 16:00 Peripheral/Venous Blood Culture - Preliminary NO GROWTH AFTER 48 HOURS 12/20/20 15:53 Peripheral/Venous Blood Culture - Preliminary NO GROWTH AFTER 48 HOURS Brown/IV: Voiding Method Urinal Active Medications - Current Medications Current Medications: Generic Name Dose Route Start Last Admin Trade Name Freq PRN Reason Stop Dose Admin Acetaminophen 650 mg 12/20/20 19:09 Acetaminophen 325 Mg Tab PO Q4H PRN Pain MILD(1-3)/Fever >100.5/GEORGE Albuterol 2.5 mg 12/20/20 19:09 Albuterol 2.5 Mg/3 Ml Nebu IH Q4HRT PRN Shortness Of Breath Ascorbic Acid 500 mg 12/20/20 22:00 12/22/20 21:54 Ascorbic Acid 500 Mg Tab PO 500 mg BID KELLY Administration Azithromycin 500 mg 12/22/20 10:00 12/22/20 09:35 Azithromycin 250 Mg Tab PO 12/25/20 10:01 500 mg QDAY KELLY Administration Protocol Cholecalciferol 1,000 unit 12/21/20 10:00 12/22/20 09:35 Cholecalciferol (Vit D3) 1000 Unit (25 Mcg) Tab PO 1,000 unit QDAY KELLY Administration Famotidine 20 mg 12/20/20 22:00 12/22/20 21:54 Famotidine 20 Mg Tab PO 20 mg BID KELLY Administration Furosemide 20 mg 12/21/20 06:00 12/23/20 05:35 Furosemide 20 Mg/2 Ml Inj IV 20 mg BID@0600,1800 KELLY Administration Heparin Sodium (Porcine) 5,000 unit 12/20/20 22:00 12/22/20 21:55 Heparin 5,000 Unit/1 Ml Vial SUB-Q 5,000 unit Q12HR KELLY Administration Ceftriaxone Sodium 2 gm in 100 mls @ 200 mls/hr 12/21/20 10:00 12/22/20 09:35 Rocephin/Ns 2 Gm/100 Ml IV 12/25/20 10:29 200 mls/hr Q24HR KELLY Administration Protocol Methylprednisolone Sodium Succinate 40 mg 12/20/20 22:00 12/23/20 05:35 Methylprednisolone Sod Succinate 40 Mg/1 Ml Inj IV 40 mg Q8HR KELLY Administration Ondansetron HCl 4 mg 12/20/20 19:09 Ondansetron 4 Mg/2 Ml Inj IV Q8H PRN Nausea And Vomiting Sodium Chloride 10 ml 12/20/20 22:00 12/22/20 21:55 Sodium Chloride 0.9% 10 Ml Flush Syringe IV 10 ml BID KELLY Administration Sodium Chloride 10 ml 12/20/20 19:09 Sodium Chloride 0.9% 10 Ml Flush Syringe IV PRN PRN LINE FLUSH Zinc Sulfate 220 mg 12/20/20 22:00 12/22/20 21:54 Zinc Sulfate 220 Mg Cap PO 220 mg BID KELLY Administration
--- NOTE | 2020-12-23 09:54 | Progress Note ---
Assessment and Plan Telemetry reviewed: Sinus rhythm 81. Episode of 5 beat V. tach noted overnight Echo is completed pending read Agree with gentle IV diuresis. Repeat BMP in a.m. Further recommendations to follow per hospital course. Pt seen in conjunction with Dr Ruano who agrees with the assessment and plan of care. - Patient Problems (1) Acute encephalopathy Current Visit: Yes Status: Acute (2) Acute respiratory failure with hypoxia Current Visit: Yes Status: Acute (3) Pneumonia Current Visit: Yes Status: Acute (4) Suspected COVID-19 virus infection Current Visit: Yes Status: Acute (5) Elevated d-dimer Current Visit: Yes Status: Acute Plan to address problem: Chest CTA neg for PE (6) CHF (congestive heart failure) Current Visit: Yes Status: Suspected Qualifiers: Heart failure type: unspecified Heart failure chronicity: acute on chronic Qualified Code(s): I50.9 - Heart failure, unspecified (7) COPD (chronic obstructive pulmonary disease) Current Visit: Yes Status: Chronic (8) Hypertension Current Visit: No Status: Chronic Qualifiers: Hypertension type: essential hypertension Qualified Code(s): I10 - Essential (primary) hypertension (9) Cerebral atherosclerosis Current Visit: Yes Status: Chronic (10) Vascular dementia Current Visit: Yes Status: Chronic Qualifiers: Dementia behavioral disturbance: with behavioral disturbance Qualified Code(s): F01.51 - Vascular dementia with behavioral disturbance (11) Tobacco abuse Current Visit: Yes Status: Chronic (12) ETOH abuse Current Visit: Yes Status: Chronic Subjective Date of service: 12/23/20 Principal diagnosis: Acute respiratory failure with hypoxia Interval history: Patient resting comfortably in bed. No chest pain or shortness of breath overnight. Telemetry reviewed sinus rhythm 81. 5 beat episode of vtach noted overnight Objective Last Vital Signs Temp 98.0 F 12/23/20 03:57 Pulse 77 12/22/20 21:45 Resp 18 12/23/20 03:57 BP 108/71 12/23/20 03:56 Pulse Ox 95 12/23/20 07:38 - Physical Examination General: No Apparent Distress HEENT: Positive: EOMI, Normocephaly, Mucus Membranes Moist Neck: Positive: neck supple, trachea midline. Negative: JVD/HJR Cardiac: Positive: Reg Rate and Rhythm, S1/S2 Lungs: Positive: clear to auscultation, Normal Breath Sounds Neuro: Positive: Grossly Intact Abdomen: Positive: Soft. Negative: Tender Skin: Negative: Rash Musculoskeletal: No Pain Extremities: Present: upper extr. pulses, lower extr. pulses. Absent: edema - Imaging and Cardiology EKG: report reviewed, image reviewed Echo: pending - Telemetry EKG Rhythm: Sinus Rhythm - EKG Sinus rhythms and dysrhythmias: sinus rhythm AV and intraventricular conduction: left posterior fascicular QRS axis and voltage: right axis deviation
[2020-12-23] MEDS: cefTRIAXone/NS 2 GM/100 ML 2 GM/100 ML BAG IV SCH (11:32)
[2020-12-23] MEDS: CHOLECALCIFEROL (VIT D3) 1000 UNIT (25 mcg) TAB PO SCH (11:34)
[2020-12-23] MEDS: FAMOTIDINE 20 MG TAB PO SCH ×2 (11:34→22:09)
[2020-12-23] MEDS: AZITHROMYCIN 250 MG TAB PO SCH (11:34)
[2020-12-23] MEDS: ZINC SULFATE 220 MG CAP PO SCH ×2 (11:35→22:09)
[2020-12-23] MEDS: HEPARIN 5,000 UNIT/1 ML VIAL SUB-Q SCH ×2 (11:35→22:09)
[2020-12-23] MEDS: ASCORBIC ACID 500 MG TAB PO SCH ×2 (11:35→22:09)
[2020-12-24] MEDS: FUROSEMIDE 20 MG/2 ML INJ IV SCH ×2 (05:28→17:03)
[2020-12-24] MEDS: methylPREDNISolone Sod Succinate 40 MG/1 ML INJ IV SCH ×3 (05:28→21:47)
--- NOTE | 2020-12-24 09:35 | Progress Note ---
Assessment and Plan Telemetry reviewed sinus rhythm 74. Episode of SVT heart rate 150 noted overnight. Episode of 5 beat V. tach noted overnight. Acute on chronic respiratory failure with hypoxia Patient is on 3 L O2 home oxygen. Management per primary team NSTEMI Critical troponin value of 0.6 on routine morning labs. Previously normal troponins. Patient was chest pain-free overnight as discussed on morning rounds. We will plan for LHC in a.m. in setting of moderate to severe cardiomyopathy of unknown duration. Will discuss with patient/family. Stat twelve-lead ECG ordered. Repeat troponin ordered. N.p.o. after midnight. Cardiomyopathy Echocardiogram reviewed (12/20/2020): LVEF is 30 to 35%. LV SF is moderately reduced. Flattened septum consistent with right ventricular volume and pressure overload. Mild diastolic dysfunction is present (impaired relaxation pattern). Right ventricle is moderate to severely dilated. Systolic function is moderately to severely reduced. Right atrium is moderately dilated. Agitated saline bubble contrast intravenous injection demonstrates PFO. Mild MR. Moderate MVP is present. RVSP is 56 mmHg mild to moderate tricuspid regurg. Long-term treatment with beta-kanchan and GILBERTO inhibitor as appropriate for this stage of cardiomyopathy. Withheld due to soft blood pressures. We will plan to initiate beta-kanchan/GILBERTO inhibitor when blood pressure allows. Continue to monitor on telemetry. Patent Foramen Ovale Initiate aspirin 81 mg p.o. daily for thromboembolic stroke risk mitigation Heart failure reduced ejection fraction Patient denies chest pain or shortness of breath overnight. 2+ bilateral lower extremity edema noted Agree with gentle IV diuresis in setting of soft blood pressure. Repeat BMP in a.m. Covid PUI Covid PCR is negative DVT prophylaxis Heparin SQ Will follow Pt seen in conjunction with Dr Ruano who agrees with the assessment and plan of care. - Patient Problems (1) Acute encephalopathy Current Visit: Yes Status: Acute (2) Acute respiratory failure with hypoxia Current Visit: Yes Status: Acute (3) Pneumonia Current Visit: Yes Status: Acute (4) Suspected COVID-19 virus infection Current Visit: Yes Status: resolved (5) Elevated d-dimer Current Visit: Yes Status: Acute Plan to address problem: Chest CTA neg for PE (6) CHF (congestive heart failure) Current Visit: Yes Status: Suspected Qualifiers: Heart failure type: unspecified Heart failure chronicity: acute on chronic Qualified Code(s): I50.9 - Heart failure, unspecified (7) COPD (chronic obstructive pulmonary disease) Current Visit: Yes Status: Chronic (8) Hypertension Current Visit: No Status: Chronic Qualifiers: Hypertension type: essential hypertension Qualified Code(s): I10 - Essential (primary) hypertension (9) Cerebral atherosclerosis Current Visit: Yes Status: Chronic (10) Vascular dementia Current Visit: Yes Status: Chronic Qualifiers: Dementia behavioral disturbance: with behavioral disturbance Qualified Code(s): F01.51 - Vascular dementia with behavioral disturbance (11) Tobacco abuse Current Visit: Yes Status: Chronic (12) ETOH abuse Current Visit: Yes Status: Chronic Subjective Date of service: 12/24/20 Principal diagnosis: Acute respiratory failure with hypoxia Interval history: Patient resting comfortably in bed. No chest pain or shortness of breath overnight. Telemetry reviewed sinus rhythm 74. Episode of SVT heart rate 150 noted overnight. Episode of 5 beat V. tach noted overnight. Objective Last Vital Signs Temp 98.7 F 12/24/20 04:07 Pulse 49 L 12/24/20 05:00 Resp 18 12/24/20 04:07 BP 105/69 12/24/20 04:07 Pulse Ox 95 12/24/20 09:03 - Physical Examination General: No Apparent Distress HEENT: Positive: EOMI, Normocephaly, Mucus Membranes Moist Neck: Positive: neck supple, trachea midline. Negative: JVD/HJR Cardiac: Positive: Reg Rate and Rhythm Lungs: Positive: Normal Exam, clear to auscultation, Normal Breath Sounds Neuro: Positive: Grossly Intact Abdomen: Positive: Soft. Negative: Tender Skin: Negative: Rash Musculoskeletal: No Pain Extremities: Present: upper extr. pulses, lower extr. pulses. Absent: edema - Imaging and Cardiology EKG: report reviewed, image reviewed Echo: report reviewed - Telemetry EKG Rhythm: Sinus Rhythm - EKG Sinus rhythms and dysrhythmias: sinus rhythm AV and intraventricular conduction: left posterior fascicular QRS axis and voltage: right axis deviation
[2020-12-24] MEDS: cefTRIAXone/NS 2 GM/100 ML 2 GM/100 ML BAG IV SCH (11:14)
[2020-12-24] MEDS: FAMOTIDINE 20 MG TAB PO SCH ×2 (11:15→21:48)
[2020-12-24] MEDS: CHOLECALCIFEROL (VIT D3) 1000 UNIT (25 mcg) TAB PO SCH (11:15)
[2020-12-24] MEDS: ZINC SULFATE 220 MG CAP PO SCH ×2 (11:15→21:47)
[2020-12-24] MEDS: AZITHROMYCIN 250 MG TAB PO SCH (11:15)
[2020-12-24] MEDS: ASCORBIC ACID 500 MG TAB PO SCH ×2 (11:15→21:47)
[2020-12-24] MEDS: HEPARIN 5,000 UNIT/1 ML VIAL SUB-Q SCH ×2 (11:17→21:48)
[2020-12-24] MEDS ORDERED: SODIUM CHLORIDE 0.9% 500 ML 500 ML IV SCH (13:00)
[2020-12-24 13:14] LABS: Chol/HDL Ratio 3.11 %
--- NOTE | 2020-12-24 16:50 | Progress Note ---
Assessment and Plan Assessment and plan: Last night events noted , patient had episodes of SVT with heart rate ranging in 150s as well as 5 beat V. tach This morning patient had elevated troponins, cardiology recommended left heart catheterization tomorrow 12/25 Patient feels better denies any chest pain or shortness of breath On 4.5 L of nasal cannula oxygen today Patient already has 3 L of nasal cannula oxygen at home Vital signs noted Non-ST elevation IL : in the setting of cardiomyopathy/systolic congestive heart failure EF of 30 to 35% Cardiology recommend left heart catheterization tomorrow Continue current management acute respiratory failure with hypoxia Patient on Ventimask on 15 L of oxygen, 50% FiO2 saturating 95% on 12/22/2020 Gradually titrated, today patient's oxygen requirement 4.5 L nasal cannula Wean as tolerated, patient has home oxygen on 3 L nasal cannula Pneumonia Continue IV antibiotics / Rocephin and Zithromax Complete 5 doses tomorrow, follow cultures COVID-19 negative Coronavirus PCR negative 01-09, DC isolation Acute systolic CHF (congestive heart failure) Acute systolic CHF Echo EF 30 to 35% Continue antifailure medications Diuretics, beta-blockers, GILBERTO inhibitors Input output monitoring, fluid restriction History of hypertension However blood pressure well controlled Did not need any antihypertensives Vascular dementia Verbal prompting, verbal redirection, supportive care Cerebral atherosclerosis Risk factor reduction, supportive care, antiplatelet therapy as clinically indicated. Moderate microvascular ischemic changes on CT head DVT prophylaxis SCD/subcu Heparin Full code status Disposition; follow heart cath report tomorrow, and cardiology recommendations Discharge when medically stable Patient already has home oxygen 3 L nasal cannula Plan of care reviewed with the patient and his nurse Brief history 70 YO Male with HTN, COPD, Vascular Dementia, Cerebral Atherosclerosis was admitted through emergency room with altered level of consciousness and confusion patient was found to have increased confusion and shortness of breath. patient was found to be in distress with a pulse oximetry in the 60s on room air. Patient received supplemental oxygen with mild improvement of symptoms , admitted to the hospital symptomatically managed , evaluated by cardiology medications optimized . Patient was PUI, ruiz PCR test was negative, patient initially was severely hypoxemic on high flow oxygen and BiPAP, gradually improved today 12/23/2020 patient is on 5 L of nasal cannula oxygen with intermittent BiPAP Patient has congestive heart failure his ejection fraction unknown, echocardiogr am done, pending report Continue current management, possible discharge tomorrow if stable 12/21/2020 Still short of breath Intermittently on high flow oxygen and BiPAP Continue antibiotics and steroids and DuoNebs 12/22/2022 Shortness of breath is better On 4 L nasal cannula oxygen Patient to be transferred from [facility] to regular floor Covid negative 12/23/2020; patient is stable, patient has home oxygen plan DC home tomorrow Echo done, pending report 12/24/2020; acute systolic CHF EF 30 to 35%, continue antifailure medications Patient will complete 5 doses of Rocephin tomorrow, O2 sats 4.5 L nasal cannula Follow left heart cath tomorrow per cardiology Discharge when stable History Interval history: I have seen and examined the patient at the bedside today Patient's chart and medications reviewed, last night events noted , patient had episodes of SVT with heart rate ranging in 150s as well as 5 beat V. tach This morning patient has positive troponins. Patient has some vague chest discomfort Denies nausea vomiting Vital signs noted Hospitalist Physical - Constitutional Vitals: Temp Pulse Resp BP Pulse Ox 98.5 F 76 18 119/72 97 12/24/20 10:43 12/24/20 10:43 12/24/20 10:43 12/24/20 10:43 12/24/20 10:43 General appearance: Present: no acute distress, well-nourished, other - EENT Eyes: Present: PERRL, EOM intact - Neck Neck: Present: supple, normal ROM - Respiratory Respiratory effort: normal Respiratory: bilateral: diminished, rhonchi, negative: rales, wheezing - Cardiovascular Rhythm: regular Heart Sounds: Present: S1 & S2 - Extremities Extremities: no ischemia, No edema - Abdominal General gastrointestinal: soft, non-tender, non-distended, normal bowel sounds - Integumentary Integumentary: Present: clear, warm - Psychiatric Psychiatric: appropriate mood/affect, cooperative - Neurologic Neurologic: CNII-XII intact, moves all extremities HEART Score - HEART Score Troponin: Troponin T 0.641 ng/mL (0.00-0.029) H* D 12/24/20 10:53 Results - Labs CBC & Chem 7: 12/21/20 05:05 12/21/20 05:05 Labs: Laboratory Last Values WBC 4.7 K/mm3 (4.5-11.0) 12/21/20 05:05 RBC 5.01 M/mm3 (3.65-5.03) 12/21/20 05:05 Hgb 15.7 gm/dl (11.8-15.2) H 12/21/20 05:05 Hct 47.0 % (35.5-45.6) H 12/21/20 05:05 MCV 94 fl (84-94) 12/21/20 05:05 MCH 31 pg (28-32) 12/21/20 05:05 MCHC 34 % (32-34) 12/21/20 05:05 RDW 15.9 % (13.2-15.2) H 12/21/20 05:05 Plt Count 197 K/mm3 (140-440) 12/21/20 05:05 Lymph % (Auto) 17.4 % (13.4-35.0) 12/21/20 05:05 [place] % (Auto) 1.7 % (0.0-7.3) 12/21/20 05:05 Eos % (Auto) 0.0 % (0.0-4.3) 12/21/20 05:05 Baso % (Auto) 0.1 % (0.0-1.8) 12/21/20 05:05 Lymph # (Auto) 0.8 K/mm3 (1.2-5.4) L 12/21/20 05:05 [place] # (Auto) 0.1 K/mm3 (0.0-0.8) 12/21/20 05:05 Eos # (Auto) 0.0 K/mm3 (0.0-0.4) 12/21/20 05:05 Baso # (Auto) 0.0 K/mm3 (0.0-0.1) 12/21/20 05:05 Seg Neutrophils % 80.8 % (40.0-70.0) H 12/21/20 05:05 Seg Neutrophils # 3.8 K/mm3 (1.8-7.7) 12/21/20 05:05 D-Dimer 1009.51 ng/mlDDU (0-234) H 12/20/20 15:53 ABG pH 7.363 (7.320-7.450) 12/20/20 17:46 POC ABG pCO2 56.9 mmHg (32.0-48.0) H 12/20/20 17:46 POC ABG pO2 105.8 mmHg (83-108) 12/20/20 17:46 POC ABG HCO3 31.6 12/20/20 17:46 ABG O2 Saturation 98.0 (0-100) 12/20/20 17:46 POC ABG Base Excess 4.2 12/20/20 17:46 ABG Hemoglobin 17.9 (12.0-17.5) H 12/20/20 17:46 ABG Oxyhemoglobin 95.0 (94-98) 12/20/20 17:46 ABG Methemoglobin 0.1 (0.0-1.5) 12/20/20 17:46 ABG Sodium 141.3 mmol/L (136.0-145.0) 12/20/20 17:46 ABG Potassium 3.7 mmol/L (3.40-4.50) 12/20/20 17:46 ABG Chloride 101.0 mmol/L (98-107) 12/20/20 17:46 ABG Glucose 116 mg/dL (65-95) H 12/20/20 17:46 Carboxyhemoglobin 3.0 (0.5-1.5) H 12/20/20 17:46 FiO2 % 98.0 12/20/20 17:46 Sodium 143 mmol/L (137-145) 12/21/20 05:05 Potassium 4.4 mmol/L (3.6-5.0) D 12/21/20 05:05 Chloride 102.4 mmol/L (98-107) 12/21/20 05:05 Carbon Dioxide 33 mmol/L (22-30) H 12/21/20 05:05 Anion Gap 12 mmol/L 12/21/20 05:05 BUN 19 mg/dL (9-20) 12/21/20 05:05 Creatinine 0.6 mg/dL (0.8-1.3) L 12/21/20 05:05 Estimated GFR > 60 ml/min 12/21/20 05:05 BUN/Creatinine Ratio 32 % 12/21/20 05:05 Glucose 117 mg/dL (75-100) H 12/21/20 05:05 POC Glucose 141 mg/dL (70-105) H 12/24/20 15:55 Calcium 8.1 mg/dL (8.4-10.2) L 12/21/20 05:05 Ferritin 95.4 ng/mL (30.0-300.0) 12/20/20 15:53 Total Bilirubin 0.30 mg/dL (0.1-1.2) 12/21/20 05:05 Direct Bilirubin < 0.2 mg/dL (0-0.2) 12/20/20 15:53 Indirect Bilirubin 0.4 mg/dL 12/20/20 15:53 AST 81 units/L (5-40) H 12/21/20 05:05 ALT 24 units/L (7-56) 12/21/20 05:05 Alkaline Phosphatase 92 units/L (35-129) 12/21/20 05:05 Ammonia 12.0 umol/L (25-60) L 12/20/20 17:06 Lactate Dehydrogenase 346 units/L (91-180) H 12/20/20 15:53 Troponin T 0.641 ng/mL (0.00-0.029) H* D 12/24/20 10:53 C-Reactive Protein 1.70 mg/dL (0.00-1.30) H 12/20/20 15:53 NT-Pro-B Natriuret Pep 7700 pg/mL (0-900) H 12/20/20 15:53 Total Protein 5.4 g/dL (6.3-8.2) L 12/21/20 05:05 Albumin 3.1 g/dL (3.9-5) L 12/21/20 05:05 Albumin/Globulin Ratio 1.3 % 12/21/20 05:05 Triglycerides 115 mg/dL (2-149) 12/24/20 10:53 Cholesterol 165 mg/dL (50-199) 12/24/20 10:53 LDL Cholesterol Direct 104 mg/dL (50-130) 12/24/20 10:53 HDL Cholesterol 53 mg/dL (40-59) 12/24/20 10:53 Cholesterol/HDL Ratio 3.11 % 12/24/20 10:53 Procalcitonin 0.05 ng/mL (<0.15) 12/20/20 15:53 TSH 0.920 mlU/mL (0.270-4.200) 12/20/20 17:06 Arterial Blood Glucose 116 mg/dL (65-95) H 12/20/20 17:46 Arterial Blood Ionized Calcium 4.7 mg/dL (4.6-5.3) 12/20/20 17:46 Coronavirus (PCR) Negative (Negative) 12/21/20 09:18 Microbiology: Microbiology 12/20/20 16:00 Peripheral/Venous Blood Culture - Preliminary NO GROWTH AFTER 72 HOURS 12/20/20 15:53 Peripheral/Venous Blood Culture - Preliminary NO GROWTH AFTER 72 HOURS Brown/IV: Voiding Method Urinal Active Medications - Current Medications Current Medications: Generic Name Dose Route Start Last Admin Trade Name Freq PRN Reason Stop Dose Admin Acetaminophen 650 mg 12/20/20 19:09 Acetaminophen 325 Mg Tab PO Q4H PRN Pain MILD(1-3)/Fever >100.5/GEORGE Albuterol 2.5 mg 12/20/20 19:09 Albuterol 2.5 Mg/3 Ml Nebu IH Q4HRT PRN Shortness Of Breath Ascorbic Acid 500 mg 12/20/20 22:00 12/24/20 11:15 Ascorbic Acid 500 Mg Tab PO 500 mg BID KELLY Administration Aspirin 81 mg 12/24/20 12:00 Aspirin 81 Mg Tab Chew PO QDAY KELLY Aspirin 325 mg 12/25/20 06:00 Aspirin Ec 325 Mg Tab PO 12/25/20 06:01 ONCE ONE Azithromycin 500 mg 12/22/20 10:00 12/24/20 11:15 Azithromycin 250 Mg Tab PO 12/25/20 10:01 500 mg QDAY KELLY Administration Protocol Cholecalciferol 1,000 unit 12/21/20 10:00 12/24/20 11:15 Cholecalciferol (Vit D3) 1000 Unit (25 Mcg) Tab PO 1,000 unit QDAY KELLY Administration Famotidine 20 mg 12/20/20 22:00 12/24/20 11:15 Famotidine 20 Mg Tab PO 20 mg BID KELLY Administration Furosemide 20 mg 12/21/20 06:00 12/24/20 05:28 Furosemide 20 Mg/2 Ml Inj IV 20 mg BID@0600,1800 KELLY Administration Heparin Sodium (Porcine) 5,000 unit 12/20/20 22:00 12/24/20 11:17 Heparin 5,000 Unit/1 Ml Vial SUB-Q 5,000 unit Q12HR KELLY Administration Ceftriaxone Sodium 2 gm in 100 mls @ 200 mls/hr 12/21/20 10:00 12/24/20 11:14 Rocephin/Ns 2 Gm/100 Ml IV 12/25/20 10:29 200 mls/hr Q24HR KELLY Administration Protocol Sodium Chloride 500 mls @ 50 mls/hr 12/24/20 13:00 Nacl 0.9% 500 Ml IV 12/24/20 22:59 DIRECT KELLY Methylprednisolone Sodium Succinate 40 mg 12/20/20 22:00 12/24/20 05:28 Methylprednisolone Sod Succinate 40 Mg/1 Ml Inj IV 40 mg Q8HR KELLY Administration Ondansetron HCl 4 mg 12/20/20 19:09 Ondansetron 4 Mg/2 Ml Inj IV Q8H PRN Nausea And Vomiting Sodium Chloride 10 ml 12/20/20 22:00 12/24/20 11:16 Sodium Chloride 0.9% 10 Ml Flush Syringe IV 10 ml BID KELLY Administration Sodium Chloride 10 ml 12/20/20 19:09 Sodium Chloride 0.9% 10 Ml Flush Syringe IV PRN PRN LINE FLUSH Zinc Sulfate 220 mg 12/20/20 22:00 12/24/20 11:15 Zinc Sulfate 220 Mg Cap PO 220 mg BID KELLY Administration
[2020-12-24] MEDS: ASPIRIN 81 MG TAB CHEW PO SCH (17:02)
--- NOTE | 2020-12-24 18:05 | Event Note ---
Date: 12/24/20 I called patient's brother Mr. Alessandro Sandhu at [phone] and discussed in detail patient's condition, tests and reports, consultants recommendations, treatment plan, possible heart cath procedure tomorrow, his oxygen saturations, they had numerous questions I answered all of them And encouraged them to call back if they had any new questions and concerns. I informed the nurse about my conversation with the family
[2020-12-24] MEDS: carvediloL 3.125 MG TAB PO SCH (21:50)
[2020-12-25 05:45] LABS: Basophils % (Auto) 0.3 % (0.0-1.8); Hematocrit 46.9 % (35.5-45.6); Hemoglobin 15.4 gm/dl (11.8-15.2); Lymphocytes % (Auto) 9.7 % (13.4-35.0); Mean Corpuscular HGB Conc 33 % (32-34); Mean Corpuscular Volume 94 fl (84-94); Monocytes # (Auto) 0.2 K/mm3 (0.0-0.8); Monocytes % (Auto) 1.7 % (0.0-7.3); Platelet Count 197 K/mm3 (140-440); Red Blood Count 4.99 M/mm3 (3.65-5.03); Red Cell Distribution Width 15.5 % (13.2-15.2)
[2020-12-25] MEDS: FUROSEMIDE 20 MG/2 ML INJ IV SCH (05:52)
[2020-12-25] MEDS: methylPREDNISolone Sod Succinate 40 MG/1 ML INJ IV SCH ×2 (05:52→15:23)
[2020-12-25 05:53] LABS: INR 1.18 (0.87-1.13)
[2020-12-25] MEDS ORDERED: ASPIRIN EC 325 MG TAB PO ONE (06:00)
[2020-12-25 06:04] LABS: Blood Urea Nitrogen 24 mg/dL (9-20); Calcium 7.9 mg/dL (8.4-10.2); Hemolysis Index 6
[2020-12-25 06:06] LABS: BUN/Creatinine Ratio 40
[2020-12-25] MEDS ORDERED: HEPARIN/NS 5000 UNIT/500ML 1,000 ML IR ONE (08:11)
[2020-12-25] MEDS ORDERED: SODIUM CHLORIDE 0.9% 500 ML 500 ML ONE (08:29)
[2020-12-25] MEDS: ASPIRIN 81 MG TAB CHEW PO SCH ×2 (08:49→10:13)
[2020-12-25] MEDS: fentaNYL 100 MCG/2 ML INJ ONE ×3 (09:44→10:01)
[2020-12-25] MEDS: MIDAZOLAM 2 MG/2 ML INJ ONE ×2 (09:45→09:51)
[2020-12-25] MEDS: LIDOCAINE (2%) 20 MG/1 ML VIAL 20 ML MDV INFILTRATI ONE ×2 (09:45→09:59)
[2020-12-25] MEDS: HEPARIN 10,000 UNITS/10 ML VIAL ONE ×2 (09:46→10:01)
[2020-12-25] MEDS: VERAPAMIL 5 MG/2 ML INJ ONE ×2 (09:46→10:01)
[2020-12-25] MEDS ORDERED: LISINOPRIL 5 MG TAB PO SCH (10:00)
[2020-12-25] MEDS: cefTRIAXone/NS 2 GM/100 ML 2 GM/100 ML BAG IV SCH (10:12)
[2020-12-25] MEDS: carvediloL 3.125 MG TAB PO SCH (10:14)
[2020-12-25] MEDS: FAMOTIDINE 20 MG TAB PO SCH (10:14)
[2020-12-25] MEDS: CHOLECALCIFEROL (VIT D3) 1000 UNIT (25 mcg) TAB PO SCH (10:14)
[2020-12-25] MEDS: ASCORBIC ACID 500 MG TAB PO SCH (10:14)
[2020-12-25] MEDS: HEPARIN 5,000 UNIT/1 ML VIAL SUB-Q SCH (10:14)
[2020-12-25] MEDS: AZITHROMYCIN 250 MG TAB PO SCH (10:15)
[2020-12-25] MEDS: ZINC SULFATE 220 MG CAP PO SCH (10:15)
--- NOTE | 2020-12-25 11:16 | Cardiac Catherization Report ---
DATE OF SERVICE: 12/25/2020 CARDIAC CATHETERIZATION REPORT INDICATIONS: The patient is a 70-year-old -[place] gentleman, who was admitted with severe shortness of breath and also altered mental status and his echocardiogram showed ejection fraction of 30-35% and also moderate pulmonary hypertension noted 56 mmHg. The patient also carries a diagnosis of vascular dementia in addition to chronic obstructive pulmonary disease. The patient was noted to have mildly elevated troponin levels. In addition, the patient has a history of alcohol use. Because of his low ejection fraction and no previous ischemic workup and elevated troponins, he was scheduled for cardiac catheterization for definitive diagnosis and treatment. This was discussed with his son who agreed to proceed with cardiac catheterization. DESCRIPTION OF PROCEDURE: The patient was brought to the catheterization laboratory in a fasting condition. The patient is alert, awake, but has multiple questions about the catheterization, we answered them, finally agreed to proceed with cardiac catheterization. He was prepared in standard fashion. Sterile drapes were applied. The patient was evaluated for moderate sedation and considering his mental status, a small dose of Versed and fentanyl was given. Subsequently, local anesthesia was given in the right wrist area and a right radial artery access was obtained using 21-gauge arterial puncture needle. A 5-Andorran slender sheath was introduced. A 5-Andorran multipurpose catheter was used to obtain the angiograms of the left ventricle done in BURTON projection using hand injection followed by angiograms of the left coronary artery and right coronary artery in multiple views. At the end of the procedure, catheter and sheath were removed and good hemostasis was achieved with a radial band application. The patient tolerated the procedure well. The patient is somewhat restless during the procedure. However, his vital signs have been stable. Rhythm has been stable throughout the procedure. The patient was monitored throughout the procedure for any side effects from moderate sedation and at the end of the procedure, the patient is comfortable, alert, awake, moving all extremities with no focal deficits. O2 saturation has been normal. The patient's moderate sedation started at 9:51 a.m. and ended at 10:11 a.m. The patient was transferred to the room in stable condition. Findings were explained to the son on the phone in detail. Following findings were noted: 1. Aortic pressure 129/76. Left ventricular pressure 129/21. No gradient across the aortic valve. Estimated ejection fraction 45-50%. Left ventriculogram done in BURTON projection showed left ventricular size to be upper limits of normal with ejection fraction lower limits of normal in the range of 45-50%. Mitral regurgitation could not be evaluated because of limited amount of dye injected. End-diastolic pressure was found to be 21 mmHg. 2. Right coronary artery dominant vessel arises normally from right coronary cusp. Angiographically smooth and normal. 3. Left coronary artery arises normally from left coronary cusp. Left main, LAD and its branches, circumflex artery and its branches are angiographically smooth and normal. FINAL IMPRESSION: 1. Left ventricular function lower limits of normal around 45-50% with mildly elevated end diastolic pressure. 2. Normal coronary anatomy angiographically. 3. Ejection fraction appears to be improved. Some of his left ventricular dysfunction may be secondary to alcohol use. Also, has underlying chronic obstructive pulmonary disease. Would continue risk factor modification and medical therapy. TID: [id number] RECEIPT: [id number] JAHAIRA/SACHIN EPPERSON
--- NOTE | 2020-12-25 12:01 | Progress Note ---
Assessment and Plan Telemetry reviewed sinus rhythm 74. Episode of SVT heart rate 150 noted overnight. Episode of 5 beat V. tach noted overnight. Acute on chronic respiratory failure with hypoxia Patient is on 3 L O2 home oxygen. Management per primary team NSTEMI suspect type II Patient is currently chest pain-free. LHC performed on 12/25/2020 reveals normal coronary arteries Cardiomyopathy Echocardiogram reviewed (12/20/2020): LVEF is 30 to 35%. LV SF is moderately reduced. Flattened septum consistent with right ventricular volume and pressure overload. Mild diastolic dysfunction is present (impaired relaxation pattern). Right ventricle is moderate to severely dilated. Systolic function is moderately to severely reduced. Right atrium is moderately dilated. Agitated saline bubble contrast intravenous injection demonstrates PFO. Mild MR. Moderate MVP is present. RVSP is 56 mmHg mild to moderate tricuspid regurg. Long-term treatment with beta-kanchan and GILBERTO inhibitor as appropriate for this stage of cardiomyopathy. Withheld due to soft blood pressures. We will plan to initiate beta-kanchan/GILBERTO inhibitor when blood pressure allows. Continue to monitor on telemetry. Patent Foramen Ovale Initiate aspirin 81 mg p.o. daily for thromboembolic stroke risk mitigation Heart failure reduced ejection fraction Patient denies chest pain or shortness of breath overnight. 2+ bilateral lower extremity edema noted Agree with gentle IV diuresis in setting of soft blood pressure. Repeat BMP in a.m. Covid PUI Covid PCR is negative DVT prophylaxis Heparin SQ Patient is currently in stable cardiac status. Chest pain symptoms have resolved. LHC reveals normal coronary arteries. The diagnosis of nonischemic cardiomyopathy will be treated medically. Patient may discharge from cardiac standpoint. Patient should follow-up in our [place] office with Dr Garcia on 01/12/2021 at 10 AM. #[id number] Pt seen in conjunction with Dr Ruano who agrees with the assessment and plan of care. - Patient Problems (1) Acute encephalopathy Current Visit: Yes Status: Acute (2) Acute respiratory failure with hypoxia Current Visit: Yes Status: Acute (3) Pneumonia Current Visit: Yes Status: Acute (4) Suspected COVID-19 virus infection Current Visit: Yes Status: resolved (5) Elevated d-dimer Current Visit: Yes Status: Acute Plan to address problem: Chest CTA neg for PE (6) CHF (congestive heart failure) Current Visit: Yes Status: Suspected Qualifiers: Heart failure type: unspecified Heart failure chronicity: acute on chronic Qualified Code(s): I50.9 - Heart failure, unspecified (7) COPD (chronic obstructive pulmonary disease) Current Visit: Yes Status: Chronic (8) Hypertension Current Visit: No Status: Chronic Qualifiers: Hypertension type: essential hypertension Qualified Code(s): I10 - Essential (primary) hypertension (9) Cerebral atherosclerosis Current Visit: Yes Status: Chronic (10) Vascular dementia Current Visit: Yes Status: Chronic Qualifiers: Dementia behavioral disturbance: with behavioral disturbance Qualified Code(s): F01.51 - Vascular dementia with behavioral disturbance (11) Tobacco abuse Current Visit: Yes Status: Chronic (12) ETOH abuse Current Visit: Yes Status: Chronic (13) Normal Coronary Arteries Current Visit: Yes Status: Acute Subjective Date of service: 12/25/20 Principal diagnosis: Acute respiratory failure with hypoxia Interval history: Patient resting comfortably in bed. No chest pain or shortness of breath overnight. Telemetry reviewed: Sinus rhythm 70. No events Objective Last Vital Signs Temp 97.7 F 12/25/20 03:24 Pulse 69 12/25/20 11:30 Resp 15 12/25/20 11:30 BP 113/63 12/25/20 11:30 Pulse Ox 98 12/25/20 11:30 - Physical Examination General: No Apparent Distress HEENT: Positive: EOMI, Normocephaly, Mucus Membranes Moist Neck: Positive: neck supple, trachea midline. Negative: JVD/HJR Cardiac: Positive: Reg Rate and Rhythm, S1/S2 Lungs: Positive: clear to auscultation, Normal Breath Sounds Neuro: Positive: Grossly Intact Abdomen: Positive: Soft. Negative: Tender Skin: Negative: Rash Musculoskeletal: No Pain Extremities: Present: upper extr. pulses, lower extr. pulses. Absent: edema - Labs and Meds Coagulation 12/25/20 Range/Units 05:14 PT 15.0 H (12.2-14.9) Sec. INR 1.18 H (0.87-1.13) Lipids 12/24/20 Range/Units 10:53 Triglycerides 115 (2-149) mg/dL Cholesterol 165 (50-199) mg/dL HDL Cholesterol 53 (40-59) mg/dL Cholesterol/HDL Ratio 3.11 % CBC 12/25/20 Range/Units 05:14 WBC 9.9 (4.5-11.0) K/mm3 RBC 4.99 (3.65-5.03) M/mm3 Hgb 15.4 H (11.8-15.2) gm/dl Hct 46.9 H (35.5-45.6) % Plt Count 197 (140-440) K/mm3 Lymph # (Auto) 1.0 L (1.2-5.4) K/mm3 Dewitt # (Auto) 0.2 (0.0-0.8) K/mm3 Eos # (Auto) 0.0 (0.0-0.4) K/mm3 Baso # (Auto) 0.0 (0.0-0.1) K/mm3 Comprehensive Metabolic Panel 12/25/20 Range/Units 05:14 Sodium 139 (137-145) mmol/L Potassium 4.0 (3.6-5.0) mmol/L Chloride 94.8 L (98-107) mmol/L Carbon Dioxide 40 H D (22-30) mmol/L BUN 24 H (9-20) mg/dL Creatinine 0.6 L (0.8-1.3) mg/dL Glucose 100 (75-100) mg/dL Calcium 7.9 L (8.4-10.2) mg/dL - Imaging and Cardiology EKG: report reviewed, image reviewed Echo: report reviewed - Telemetry EKG Rhythm: Sinus Rhythm - EKG Sinus rhythms and dysrhythmias: sinus rhythm AV and intraventricular conduction: left posterior fascicular QRS axis and voltage: right axis deviation
[2020-12-25 12:50] VITALS: BP 127/75
--- NOTE | 2020-12-25 13:25 | Discharge Summary ---
Providers - Providers Date of Admission: 12/20/20 19:09 Date of discharge: 12/25/20 Attending physician: YOJANA NAGY MD 12/20/20 20:59 Consult to Physician [CONS] Routine Comment: Consulting Provider: NICKOLAS RESTREPO Physician Instructions: Reason For Exam: chf Hospitalization Reason for admission: Pneumonia, non-ST elevation IL status post normal heart cath CHF Condition: Fair Procedures: Cardiac cath Hospital course: History of Present Illness Chief complaint: He is not acting right History of present illness: 70 YO Male with HTN, COPD, Vascular Dementia, Cerebral Atherosclerosis presents to ED for evaluation. Patient is confused with diminished cognition at the time my evaluation and is unable to provide history. Patient history provided by EMS staff, ED staff, as well as patient's son who was available by telephone to discuss patient history. As per son the patient was found to have increased confusion and shortness of breath. EMS was notified and upon arrival the patient was found to be in distress with a pulse oximetry in the 60s on room air. The patient was treated with submental oxygen with mild improvement in symptoms and subsequently transported to [facility] for further care and evaluation of the aforementioned symptoms. Patient seen and evaluated in the emergency department. All lab and imaging studies reviewed. Patient was found to have a pulse oximetry of 72% on room air which is consistent with acute hypoxemic respiratory failure. The patient was treated with nonrebreather mask with mild improvement in symptoms. Chest x-ray revealed bilateral pneumonia. Patient also found to have clinical symptoms consistent with CHF decompensation. Patient admitted to medical floor and initiated on CHF protocol as well as pneumonia protocol and coronavirus protocol. No further history is obtainable. No reports of fever, chills, chest pain, palpitation, trauma, skin rash, recent ill contacts, or known exposure to COVID-19. No prior admission for review. No medication listed at time of admission for reconciliation. Advanced care planning conducted in ED. Patient admitted to [facility] due to increased risk of multisymptom decompensation. Patient is confused with diminished cognition at the time of my evaluation but has a positive gag reflex and is able to protect his airway without difficulty Hospital courseAssessment and plan: Last night events noted , patient had episodes of SVT with heart rate ranging in 150s as well as 5 beat V. tach This morning patient had elevated troponins, cardiology recommended left heart catheterization tomorrow 12/25 Patient feels better denies any chest pain or shortness of breath On 4.5 L of nasal cannula oxygen today Patient already has 3 L of nasal cannula oxygen at home Vital signs noted Non-ST elevation IL : in the setting of cardiomyopathy/systolic congestive heart failure EF of 30 to 35% Cardiology recommend left heart catheterization tomorrow Continue current management acute respiratory failure with hypoxia Patient on Ventimask on 15 L of oxygen, 50% FiO2 saturating 95% on 12/22/2020 Gradually titrated, today patient's oxygen requirement 4.5 L nasal cannula Wean as tolerated, patient has home oxygen on 3 L nasal cannula Pneumonia Continue IV antibiotics 11/24 Rocephin and Zithromax Complete 5 doses tomorrow, follow cultures COVID-19 negative Coronavirus PCR negative 01-09, DC isolation Acute systolic CHF (congestive heart failure) Acute systolic CHF Echo EF 30 to 35% Continue antifailure medications Diuretics, beta-blockers, GILBERTO inhibitors Input output monitoring, fluid restriction History of hypertension However blood pressure well controlled Did not need any antihypertensives Vascular dementia Verbal prompting, verbal redirection, supportive care Cerebral atherosclerosis Risk factor reduction, supportive care, antiplatelet therapy as clinically indicated. Moderate microvascular ischemic changes on CT head Patient is status post normal cardiac cath . Cardiology cleared the patient for discharge Disposition: DC- TO HOME OR SELFCARE Final Discharge Diagnosis (Prints w/discharge instructions): Pneumonia, non-ST elevation IL status post normal cardiac cath Time spent for discharge: 40 minutes - Discharge Diagnoses (1) Non-ST elevation IL (NSTEMI) Status: Acute (2) Acute encephalopathy Status: Acute (3) Acute heart failure Status: Acute (4) Acute respiratory failure with hypoxia Status: Acute (5) Community acquired pneumonia Status: Acute (6) CHF (congestive heart failure) Status: Suspected Qualifiers: Heart failure type: unspecified Heart failure chronicity: acute on chronic Qualified Code(s): I50.9 - Heart failure, unspecified (7) Hypertension Status: Chronic Qualifiers: Hypertension type: essential hypertension Qualified Code(s): I10 - Essential (primary) hypertension Core Measure Documentation - Palliative Care Palliative Care/ Comfort Measures: Not Applicable - Core Measures Any of the following diagnoses?: acute IL, heart failure - Acute IL Discharge Requirements Aspirin at discharge: Yes GILBERTO/ARB for LVSD if EF <40%: Yes Beta kanchan at discharge: Yes Statin for LDL = or >100 mg/dl on DC: Yes - Heart Failure Discharge Requirements GILBERTO/ARB for LVSD if EF <40%: Yes Beta kanchan at discharge: Yes Exam - Constitutional Vitals: Temp Pulse Resp BP Pulse Ox 97.7 F 66 17 127/75 97 12/25/20 03:24 12/25/20 12:30 12/25/20 12:30 12/25/20 12:30 12/25/20 12:30 General appearance: Present: no acute distress, well-nourished - EENT Eyes: Present: PERRL ENT: hearing intact, clear oral mucosa - Neck Neck: Present: supple, normal ROM - Respiratory Respiratory effort: normal Respiratory: bilateral: diminished - Cardiovascular Heart Sounds: Present: S1 & S2. Absent: rub, click - Extremities Extremities: pulses symmetrical, No edema Peripheral Pulses: within normal limits - Abdominal General gastrointestinal: Present: soft, non-tender, non-distended, normal bowel sounds Male genitourinary: Present: normal - Integumentary Integumentary: Present: clear, warm, dry - Musculoskeletal Musculoskeletal: gait normal, strength equal bilaterally - Psychiatric Psychiatric: appropriate mood/affect, intact judgment & insight - Neurologic Neurologic: CNII-XII intact, moves all extremities Plan Activity: advance as tolerated Diet: low fat, low cholesterol, low salt Special Instructions: restrict fluid intake to, record daily weights Follow up with: [facility] [Other] - 3-5 Days Prescriptions: Aspirin [Aspirin BABY CHEW TAB] 81 mg PO QDAY 30 Days tab.chew carvediloL [Coreg] 3.125 mg PO BID 30 Days tablet predniSONE [Deltasone] 40 mg PO QDAY 7 Days tab Furosemide [Lasix] 40 mg PO DAILY 30 Days tablet Famotidine [Pepcid] 20 mg PO BID 30 Days tablet ALBUTEROL NEB's [Proventil 0.083% NEBS] 2.5 mg IH Q4HRT PRN #1 nebu PRN Reason: Shortness Of Breath Cholecalciferol Vit D3 [Vitamin D3 1,000 UNIT TAB] 1,000 unit PO QDAY 30 Days tablet lisinopriL [Zestril TAB] 2.5 mg PO QDAY 30 Days tablet Zinc Sulfate 220 mg PO BID 30 Days capsule
--- NOTE | 2020-12-25 13:28 | Vascular Lab Report ---
DUPLEX DOPPLER LOWER EXTREMITY VEINS, BILATERAL INDICATION / CLINICAL INFORMATION: Elevated D-dimers/evaluate for DVT. Lower extremity pain and swelling. TECHNIQUE: Duplex doppler imaging was performed through the veins of both lower extremities using venous patrice keith and other maneuvers. COMPARISON: None available. FINDINGS: Right Common Femoral vein: Negative. Right Femoral vein: Negative. Right Popliteal vein: Negative. Right Calf veins: Negative. Left Common Femoral vein: Negative. Left Femoral vein: Negative. Left Popliteal vein: Negative. Left Calf veins: Negative. Additional findings: Mild subcutaneous edema.. IMPRESSION: 1. No sonographic evidence for DVT in either lower extremity. Signer Name: Chinedu Hull MD Signed: 12/25/2020 1:24 PM Workstation Name: [employer]
--- NOTE | 2020-12-25 17:49 | Electrocardiograph Report ---
[facility] Test Date: 2020-12-24 Test Time: 12:45:55 Pat Name: MALLORIE SHYAM Department: Room: A389 Gender: M Office Director: MITZI : 1950 Requested By: DON RG Order Number: [id number] Reading MD: Arthur Ruano Measurements Intervals [place] Rate: 84 P: 83 NV: 145 QRS: -74 QRSD: 95 T: -62 QT: 396 QTc: 468 Interpretive Statements Sinus rhythm Probable left atrial enlargement Markedly posterior QRS axis Abnormal T, consider ischemia, anterior leads Compared to ECG 12/20/2020 16:29:17 T-wave abnormality now present Possible ischemia now present No significant change noted. Electronically Signed On 12-25-2020 17:48:48 EDT by Arthur Ruano
--- NOTE | 2021-01-06 17:19 | Electrocardiograph Report ---
[facility] Test Date: 2020-12-20 Test Time: 16:29:17 Pat Name: MALLORIE SHYAM Department: Room: A389 Gender: M Studio Coordinator: SANTOS : 1950 Requested By: NINFA MARTIN Order Number: [id number] Reading MD: Stefany Dean Measurements Intervals [place] Rate: 88 P: 68 VT: 146 QRS: 257 QRSD: 93 T: -53 QT: 388 QTc: 471 Interpretive Statements Sinus rhythm Probable left atrial enlargement Right superior axis Nonspecific inferolateral ST segment abnormality No previous ECG available for comparison Electronically Signed On 01-06-2021 17:19:31 EDT by Stefany Dean
== END 2020-12-25 15:55 | disposition home or self-care (01) | DRG 280 ==
LOC: ED 15:23 → IMCU 19:09 → 3A 12-22 15:18
PROVIDERS: ADMIT Internal Medicine; ATTEND Hospitalist
PROC: 4A033R1 Measurement of Arterial Saturation, Peripheral, Percutaneous Approach (ICD-10-PCS; 2020-12-20)
PROC: 4A023N7 Measurement of Cardiac Sampling and Pressure, Left Heart, Percutaneous Approach (ICD-10-PCS; principal; 2020-12-25)
PROC: B2111ZZ Fluoroscopy of Multiple Coronary Arteries using Low Osmolar Contrast (ICD-10-PCS; 2020-12-25)
PROC: B2151ZZ Fluoroscopy of Left Heart using Low Osmolar Contrast (ICD-10-PCS; 2020-12-25)
DX: I21.4 Non-ST elevation (NSTEMI) myocardial infarction (principal); J18.9 Pneumonia, unspecified organism; I50.23 Acute on chronic systolic (congestive) heart failure; J96.21 Acute and chronic respiratory failure with hypoxia; J44.0 Chronic obstructive pulmonary disease with (acute) lower respiratory infection; G93.40 Encephalopathy, unspecified; I42.9 Cardiomyopathy, unspecified; Q21.1 Atrial septal defect; E44.0 Moderate protein-calorie malnutrition; I11.0 Hypertensive heart disease with heart failure; F01.50 Vascular dementia, unspecified severity, without behavioral disturbance, psychotic disturbance, mood disturbance, and anxiety; Z20.822 Contact with and (suspected) exposure to COVID-19; I67.2 Cerebral atherosclerosis; F17.200 Nicotine dependence, unspecified, uncomplicated; F10.10 Alcohol abuse, uncomplicated; Z68.20 Body mass index [BMI] 20.0-20.9, adult; Z82.49 Family history of ischemic heart disease and other diseases of the circulatory system; Z83.3 Family history of diabetes mellitus
CPT/HCPCS: 36415; 70450; 71045; 71275; 80048; 80053; 80061; 80076; 82140; 82728; 82805; 82947; 82962; 83615; 83880; 84145; 84443; 84484; 85025; 85379; 85610; 86140; 87040; 93005; 93306; 93458; 93970; 94644; 96365; 96375; 99406; G0378; C1894; J0456; J0696; J1644; J1940; J2250; J2920; J3010; J7040; Q9967; U0003